=== PATIENT | female | born 1945 | race Caucasian/White ===

== ENCOUNTER 2016-05-18 05:32 | Inpatient (IN) | payer MEDICARE, OTHER ==
--- NOTE | 2016-05-13 14:11 | CONS ---
DATE OF ADMISSION: 05/18/2016 DATE OF CONSULTATION: 05/12/2016 DATE OF PLANNED SURGERY: 05/18/[address] John Mullins: Thank you very much for allowing me to evaluate this 71-year-old female who is to undergo left knee surgery. HISTORICAL EVENTS: As you well know, this patient has had progressive and disabling pain involving her left knee and for this elected to proceed with your recommended surgical intervention. Today, s he denies cough, wheezing, shortness of breath, orthopnea, PND, or chest pain at rest or with exerti on. She denies nausea, vomiting, abdominal pain, unusual constipation or diarrhea and denies sympto ms of gastrointestinal bleeding with review of systems being unrevealing. MEDICATIONS: Include: 1. Topiramate 25 mg 3 tablets at night. 2. Toprol-XL 25 per day. 3. Imdur 60 mg per day. 4. Wellbutrin-XL 300 mg per day. 5. Lexapro. 6. Crestor 10 per day. 7. Aspirin 81 mg b.i.d. 8. Prilosec 40 mg a day. 9. Ranexa 500 mg 2 tabs b.i.d. PAST MEDICAL HISTORY INCLUDES: 1. Hypertrophic cardiomyopathy undergoing ablation of her septum 3 years ago, undergoing preoperati ve cardiac clearance having had a pacemaker-defibrillator placed as well. 2. Hyperlipidemia. 3. History of migraine headaches. 4. Depression. 5. Right knee surgery, right shoulder surgery, hysterectomy, cataract surgery. 6. Nasal surgery. 7. Right parotid gland surgery. 8. Left surgery, remote. 9. History of peptic ulcer disease 2 years ago without gross bleeding. PPI was added. ALLERGIES INCLUDE 1. MORPHINE. 2. ALBUTEROL. 3. SULFA. 4. SULFATES 5. TICLID, 6. LODINE. 7. AMITRIPTYLENE. FAMILY HISTORY: Positive for heart disease and stroke as well as "cancer". 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 PHYSICAL EXAMINATION: GENERAL: [place] female, overweight, in no acute distress. VITAL SIGNS: BP 119/78, respirations were 18. She was afebrile. EYES: Extraocular muscles were full. NOSE, MOUTH, AND THROAT: Normal. NECK: Supple. There was no jugular venous distention, thyroid enlargement or adenopathy. LUNGS: Clear. HEART: Rhythm was regular, no murmur. No third or fourth sound. There was a pacemaker in the righ t upper chest. BREASTS: Not examined. ABDOMEN: Nontender. Liver and spleen were not palpable. No masses or tenderness were noted. EXTREMITIES: No edema, no calf tenderness. Pulses were 2+. NEUROLOGIC: No lateralizing motor weakness. IMPRESSION: I foresee no problems with the planned surgical intervention pending reviewing her card iac preoperative evaluation, and I will follow her postoperatively with you. Dictated By: KENTRELL KINNEY/HECTOR Conf#: [id number] DID#: [id number]
[2016-05-15 11:18] VITALS: BMI 34.2
[~2016-05-18] VITALS: Ht 162.6 cm; Wt 89.7 kg
[2016-05-18] VITALS (26 sets, daily range): BP systolic 102–138; BP diastolic 57–79; PULSE 73–100; RESP 14–22; Ht 162.6 cm; Wt 89.7 kg
[~2016-05-18 05:32] MED LIST: BUPR300T48 PO; CRES10 PO; ESCI10TA PO; NASACORT NASAL; RANO10002 PO; SYMB80120 INH
[2016-05-18] MEDS: LACTATED RINGER'S 1,000 ML IV SCH ×2 (05:49→21:11)
[2016-05-18] MEDS ORDERED: BUPIVACAINE 0.5% (SDV) 40 ML, morphine SULFATE (PF) 10 MG, CLONIDINE 100 MCG, EPINEPHri... IRR SCH ×14 (06:00→06:30)
[2016-05-18] MEDS ORDERED: CEFAZOLIN 2 GM/50 ML (PMX) 50 ML IVPB ONE (06:00)
[2016-05-18] MEDS ORDERED: FAMOTIDINE 20 MG TAB PO ONE (06:00)
[2016-05-18] MEDS ORDERED: METOCLOPRAMIDE 10 MG TAB PO ONE (06:00)
[2016-05-18] MEDS ORDERED: TRANEXAMIC ACID 890 MG in SOD CHLORIDE 0.9% 100 ML IVPB ONE ×6 (06:00)
[2016-05-18] MEDS ORDERED: CELECOXIB 200 MG CAP PO ONE (06:00)
[2016-05-18] MEDS ORDERED: DEXAMETHASONE 4 MG/ML 1 ML INJ IV ONE (06:00)
[2016-05-18] MEDS ORDERED: CYAN100080 PO (06:09)
[2016-05-18] MEDS ORDERED: ESCI10TA PO (06:09)
[2016-05-18] MEDS ORDERED: SUCR1TAB56 PO (06:09)
[2016-05-18] MEDS ORDERED: ASPI81TA3 PO (06:09)
[2016-05-18] MEDS ORDERED: SELE200T11 PO (06:09)
[2016-05-18] MEDS ORDERED: BUPR300T48 PO (06:09)
[2016-05-18] MEDS ORDERED: ISOS30TA5 PO (06:09)
[2016-05-18] MEDS ORDERED: CALC600T5 PO (06:09)
[2016-05-18] MEDS ORDERED: B2/M1TAB PO (06:09)
[2016-05-18] MEDS ORDERED: MECL-77 PO (06:09)
[2016-05-18] MEDS ORDERED: VIT1TABL32 PO (06:09)
[2016-05-18] MEDS ORDERED: ONDA4TAB95 PO (06:09)
[2016-05-18] MEDS ORDERED: VITA200T7 PO (06:09)
[2016-05-18] MEDS ORDERED: POTA99TA14 PO (06:09)
[2016-05-18] MEDS ORDERED: CHOL400T10 PO (06:09)
[2016-05-18] MEDS ORDERED: CRES10 PO (06:09)
[2016-05-18] MEDS ORDERED: HYDR2TAB15 PO (06:09)
[2016-05-18] MEDS ORDERED: CITR454 PO (06:09)
[2016-05-18] MEDS ORDERED: TOPI25TA38 PO (06:09)
[2016-05-18] MEDS ORDERED: SACC250C PO (06:09)
[2016-05-18] MEDS ORDERED: LEVA0.634 INHALATION (06:09)
[2016-05-18] MEDS ORDERED: METO25TA7 PO (06:09)
[2016-05-18] MEDS ORDERED: RANO10002 PO (06:09)
[2016-05-18] MEDS ORDERED: ASC500 PO (06:09)
[2016-05-18] MEDS ORDERED: ELET20TA PO (06:09)
[2016-05-18] MEDS ORDERED: SODI100G DT (06:09)
[2016-05-18] MEDS ORDERED: OMEP40CA6 PO (06:09)
[2016-05-18] MEDS ORDERED: BENZ100C70 PO (06:09)
[2016-05-18] MEDS ORDERED: TIOT18CA INHALATION (06:09)
[2016-05-18] MEDS ORDERED: NEOSTIGMINE 3 MG/3 ML SYRINGE ONE (06:19)
[2016-05-18] MEDS ORDERED: LIDOCAINE 2% (SDV) 5 ML INJ ONE (06:19)
[2016-05-18] MEDS ORDERED: GLYCOPYRROLATE 0.4 MG INJ ONE (06:19)
[2016-05-18] MEDS ORDERED: PROPOFOL 20 ML ONE (06:19)
[2016-05-18] MEDS ORDERED: ROCURONIUM 50 MG INJ ONE (06:19)
[2016-05-18] MEDS ORDERED: MIDAZOLAM 1 MG/ML 2 ML INJ ONE (06:20)
[2016-05-18] MEDS ORDERED: ONDANSETRON 4 MG INJ ONE (06:20)
[2016-05-18] MEDS ORDERED: FENTAnyl 50 MCG/ML VIAL ONE (06:20)
[2016-05-18] MEDS ORDERED: DEXAMETHASONE 4 MG/ML 1 ML INJ ONE (06:21)
[2016-05-18] MEDS ORDERED: MIDAZOLAM 1 MG/ML 2 ML INJ IV PRN (06:30)
[2016-05-18] MEDS ORDERED: hydrALAzine 20 MG INJ IV PRN (06:30)
[2016-05-18] MEDS ORDERED: MEPERIDINE 25 MG INJ IV PRN (06:30)
[2016-05-18] MEDS ORDERED: DIPHENHYDRAMINE 50 MG INJ IV PRN (06:30)
[2016-05-18] MEDS ORDERED: ATROPINE 1 MG/10 ML SYRINGE IV PRN (06:30)
[2016-05-18] MEDS ORDERED: ONDANSETRON 4 MG INJ IV PRN (06:30)
[2016-05-18] MEDS ORDERED: LABETALOL HCL 20MG INJ IV PRN (06:30)
[2016-05-18] MEDS ORDERED: EPHEDrine SULFATE 50 MG/5 ML SYG ONE (06:31)
[2016-05-18] MEDS ORDERED: BACITRACIN 50000 UNITS INJ ONE (06:47)
[2016-05-18] MEDS ORDERED: VANCOMYCIN 1 GM INJ ONE (06:49)
[2016-05-18] MEDS ORDERED: POLYMYXIN/BACITRACIN 1L IRRIG ONE (06:49)
[2016-05-18] MEDS ORDERED: METHYLENE BLUE 10 MG/ML VIAL ONE (06:49)
[2016-05-18] MEDS ORDERED: MAGNESIUM HYDROXIDE 30ML CUP PO PRN (07:00)
[2016-05-18] MEDS ORDERED: ASPIRIN (EC) 325 MG TAB PO ONE (07:00)
[2016-05-18] MEDS ORDERED: NALOXONE (0.4 MG/ML) INJ IV PRN (07:00)
[2016-05-18] MEDS ORDERED: HYDROmorphONE 2 MG/ML SYG IV PRN (07:00)
[2016-05-18] MEDS: KETOROLAC IRR SCH ×12 (07:30→08:15)
[2016-05-18] MEDS: [UNRECOGNIZED DRUG - OTHER] IRR SCH ×12 (07:30→08:15)
[2016-05-18] MEDS: BUPIVACAINE 0.5% IRR SCH ×12 (07:30→08:15)
[2016-05-18] MEDS: CLONIDINE IRR SCH ×12 (07:30→08:15)
[2016-05-18] MEDS: EPINEPHRINE IRR SCH ×12 (07:30→08:15)
[2016-05-18] MEDS ORDERED: ROPIVACAINE 0.5 % 30 ML VIAL ONE (08:19)
[2016-05-18] MEDS ORDERED: LIDOCAINE 2%/EPI 30 ML INJ ONE (08:19)
[2016-05-18] MEDS ORDERED: FUROSEMIDE 20 MG INJ ONE (09:00)
--- NOTE | 2016-05-18 10:13 | OPR ---
DATE OF OPERATION: 05/18/2016 SURGEON: Augustine Mullins MD RF TECHNICIAN: CARLOS LEON MD The assistant director of public works functioned throughout the case to protect the collateral ligament and patellar tendon, allow for positioning of the knee and cementation technique , and was instrumental to the performance of this procedure. PREOPERATIVE DIAGNOSIS: Osteoarthritis left knee. POSTOPERATIVE DIAGNOSIS: Osteoarthritis varus, left knee. OPERATION: Total knee replacement, Shad, posterior cruciate ligament substituting with cement, size 6 femur, D tibia, 12 polyethylene, 29 patella; OrthoSensor technique. ANESTHESIA: Spinal plus general plus left adduction nerve block. PROCEDURE: The patient was taken to the operating room and given spinal and general anesthesia. The left lower extremity was prepared and draped in the usual manner. Range of motion showed flexion 20, extension 0. A medial peripatellar 2-inch incision was made in VMO. An arthrotomy was carried out. The patella was not everted. The articular surface of the medial patellofemoral had grade 4 changes. The external alignment guide was then used for us to check rotation, then flexion-extension, and then depth of cut. The anterior cruciate ligament and posterior cruciate ligament were both taken. The intramedullary alignment guide was used on the femur after careful enlargement of the hole and irrigation. The distal 10-mm of bone was resected, allowing complete extension. The femur was externally rotated 3 degrees in line with the Shad flexion tensioning device. A trial reduction was carried out after appropriate ligamentous releasing all measurements on the OrthoSensor at 5, 30, 90 were within 15 pounds. After appropriate ligamentous releasing, the knee came to complete extension with 1+ varus-valgus laxity, 1+ to 2+ AP laxity. The patella measured 25 mm, and 10 mm were taken. The patella tracked with a no-touch technique. The joint was copiously irrigated. The patella, femur, and tibia were inserted with a trial tibia. Range of motion was similar. A 12-mm tibial component was used, allowing complete extension and flexion of 125 degrees, 1+ to 2+ AP drawer. There was trace to 1+ varus/valgus laxity at 30 degrees. The tourniquet was released. Tourniquet time was 49 minutes. Hemostasis was excellent. The knee was copiously irrigated. The capsule was closed with interrupted #1 Dexon and the subcutaneous tissue with 2-0 Dexon. The skin was closed with subcuticular and a compression dressing was applied. Dictated By: AUGUSTINE OWEN/HECTOR Conf#: [id number] DID#: [id number] MTDD
--- NOTE | 2016-05-18 10:18 | RADRPT ---
PROCEDURE: XR Tibia and Fibula 1 Views. CLINICAL INDICATION: Left knee replacement, pain. TECHNIQUE: AP views of the left tibia and fibula were obtained. COMPARISON: No prior studies are available for comparison. FINDINGS: Proximal tibia and fibula were not included on the obtained image. Metallic surgical devices identi fied over the lower tibia. The visualized osseous structures appear intact. No destructive bony le sions are identified. The visualized interosseous spaces are unremarkable. Soft tissues surroundin g the tibia and fibula are unremarkable. IMPRESSION: Proximal tibia and fibula not included on the obtained image. Repeat exam can be considered. Metallic surgical device over the lower tibia. RPTAT: AA .Graham Ibarra MD, Date Time Electronically viewed and signed by .Graham Ibarra MD, on 05/18/2016 10:18 .P/
--- NOTE | 2016-05-18 12:33 | RADRPT ---
PROCEDURE: XR left knee. CLINICAL INDICATION: Knee pain. TECHNIQUE: AP and lateral views are available for review. COMPARISON: No comparison available FINDINGS: There is a postoperative total knee replacement. There is no evidence of loosening of the prosthesis . The osseous structures are normal in mineralization, architecture and alignment No acute fracture or dislocation is seen.No osseous lesions are identified. There are postoperative soft tissue singletary es . IMPRESSION: Unremarkable postoperative total knee replacement. Postoperative soft tissue changes RPTAT: HGDB .Krishna Martinez MD, Date Time Electronically viewed and signed by .Krishna Martinez MD, on 05/18/2016 12:33 .B/
[2016-05-18] MEDS: D5W-0.45 NACL + KCL 20 MEQ 1,000 ML IV SCH ×2 (13:53→20:59)
[2016-05-18] MEDS: CEFAZOLIN 2 GM/50 ML (PMX) 50 ML IVPB SCH ×2 (14:01→20:58)
[2016-05-18] MEDS: HYDROmorphONE 1 MG/ML SYG IV PRN (15:38)
[2016-05-18] MEDS: METOPROLOL (XL) 25 MG TAB PO SCH (19:00)
[2016-05-18] MEDS ORDERED: MECLIZINE 25 MG TAB PO PRN (19:00)
--- NOTE | 2016-05-18 19:25 | CONS ---
DATE OF ADMISSION: 05/18/2016 DATE OF CONSULTATION: TYPE OF CONSULTATION: Medical. Thank you, Dr. Kelley, for asking me to participate in the medical management of this patient. REASON FOR CONSULTATION: To manage the patient's hypertrophic cardiomyopathy, hyperlipidemia, migra ine headaches, depression. HISTORY OF PRESENT ILLNESS: This 71-year-old female in is now postop a left total knee replacement by Dr. Kelley. The patient has had increasing disabling pain involving her left knee. She failed medical therapy and decided to undergo a left total knee replacement. The patient is now postop. She is awake and alert. Her pain is controlled. The patient was up walking with physical therapy t nelson. The patient denies any chest pain or shortness of breath. MEDICATIONS: The patient is on the following medications: 1. Topiramate 75 mg at night. 2. Toprol-XL 25 mg a day. 3. Imdur 90 mg in the morning. 4. Wellbutrin-XL 300 mg a day. 5. Lexapro 10 mg a day. 6. Crestor 10 mg a day. 7. Aspirin 81 mg twice a day, which was discontinued preoperatively. 8. Prilosec 40 mg a day. 9. Ranexa 500 mg 2 tablets twice a day. PAST MEDICAL HISTORY: Remarkable for: 1. 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 2. Hypertrophic cardiomyopathy, having undergone ablation of her septum 3 years ago. 3. Pacemaker defibrillator. 4. Hyperlipidemia. 5. Migraine headaches. 6. Depression. 7. History of peptic ulcer disease, now on a PPI. PAST SURGICAL HISTORY: 1. Right total [place] [address] Kelley. 2. Hysterectomy. 3. Cataract surgery. 4. Nasal surgery. 5. Right parotid gland surgery. ALLERGIES: MORPHINE, ALBUTEROL, SULFATES, TICLID, LODINE, AND AMITRIPTYLINE. FAMILY HISTORY: Positive for heart disease and stroke as well as cancer. SOCIAL HISTORY: The patient does not smoke, rarely drinks alcohol. 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 PHYSICAL EXAMINATION: GENERAL: At this time, reveals a well-developed female in no apparent distress. VITAL SIGNS: Temperature 98.1, pulse of 80, respirations 18, blood pressure 112/70, O2 saturation 9 3% on 2 liter nasal cannula. HEENT: Head normocephalic. EYES: Extraocular muscles intact. NOSE AND MOUTH: Normal. NECK: Supple. No neck vein distention. LUNGS: Clear to auscultation. HEART: Regular rhythm with a II/ systolic ejection murmur. There is a pacemaker defibrillator in the chest wall. ABDOMEN: Soft, nontender. No masses or megaly. EXTREMITIES: A large bandage on the left knee. No edema in the lower extremities. IMPRESSION: This patient is stable after having a left total knee replaced today. She is awake and alert and denies any chest pain or shortness of breath. Her vital signs are stable. Her pain is u nder good control. I will manage the patient's cardiomyopathy, hyperlipidemia, migraine headaches, and depression. PLAN: 1. Resume routine medications. 2. Postop total knee replacement protocol. 3. Laboratory tests in the morning. 4. I will follow the patient along with you medically. Dictated By: KAMRON CONNOR MD ND/NTS Conf#: [id number] DID#: [id number] CC: AUGUSTINE KELLEY MD;*EndCC*
[2016-05-18] MEDS: TOPIRAMATE 25 MG TAB PO SCH (19:44)
[2016-05-18] MEDS: ONDANSETRON 4 MG INJ IV PRN (19:46)
[2016-05-18] MEDS: HYDROmorphONE 2 MG/ML SYG IV PRN (19:47)
[2016-05-18] MEDS: FAMOTIDINE 20 MG TAB PO SCH (20:58)
[2016-05-18] MEDS: ATORVASTATIN 80 MG TAB PO SCH (20:58)
[2016-05-18] MEDS: RANOLAZINE (SR) 500 MG TAB PO SCH (20:59)
[2016-05-18] MEDS: METOCLOPRAMIDE 10 MG TAB PO SCH (20:59)
[2016-05-18] MEDS ORDERED: NON-FORMULARY/PATIENT OWN MED (Rosuvastatin Calcium* (Crestor*) 10 MG) PO SCH (21:00)
[2016-05-18] MEDS: SENNA/DOCUSATE NA (8.6MG/50MG) TAB PO SCH (21:00)
[2016-05-19] MEDS: ONDANSETRON 4 MG INJ IV PRN ×2 (01:08→06:59)
[2016-05-19] MEDS: HYDROmorphONE 2 MG/ML SYG IV PRN ×4 (01:09→19:01)
[2016-05-19] MEDS: PANTOPRAZOLE (EC) 40 MG TAB PO SCH (05:06)
[2016-05-19] MEDS: CEFAZOLIN 2 GM/50 ML (PMX) 50 ML IVPB SCH (05:06)
[2016-05-19 05:26] VITALS: BP 100/58; PULSE 88; RESP 19
[2016-05-19 05:58] LABS: BASOPHILS % 0.1 % (0.0-2.0); HEMATOCRIT 36.2 % (37.0-47.0); HEMOGLOBIN 12.3 g/dl (12.0-16.0); LYMPHOCYTES # 0.7 10^3/ul (0.8-2.9); LYMPHOCYTES % 3.7 % (15.0-51.0); MEAN CORPUSCULAR VOLUME 93.9 fl (82.0-101.0); MONOCYTE # 1.1 10^3/ul (0.3-0.9); MONOCYTES % 6.2 % (0.0-11.0); NEUTROPHIL # 16.2 10^3/ul (1.6-7.5); PLATELET COUNT 194 10^3/UL (140-440); RED BLOOD COUNT 3.86 10^6/ul (4.20-5.40); RED CELL DISTRIBUTION WIDTH 12.7 % (11.5-14.5)
[2016-05-19] MEDS: D5W-0.45 NACL + KCL 20 MEQ 1,000 ML IV SCH ×2 (06:00→13:22)
[2016-05-19 06:04] LABS: CONDITION 1
[2016-05-19 06:07] LABS: POTASSIUM 4.7 mmol/L (3.5-5.1)
[2016-05-19 06:10] LABS: CREATININE 1.08 mg/dl (0.44-1.00)
[2016-05-19 06:11] LABS: CALCIUM 8.8 mg/dl (8.4-10.2)
--- NOTE | 2016-05-19 07:51 | PN ---
DATE: 05/19/2016 The patient comfortable, afebrile, vital signs stable. No calf tenderness. Out of bed. PLAN: 1. Mobilize. 2. Per Dr. Masters. Dictated By: AUGUSTINE OWEN/HECTOR Conf#: [id number] DID#: [id number]
[2016-05-19] MEDS ORDERED: HYDROmorphONE 2 MG TAB PO PRN (08:00)
[2016-05-19 08:07] VITALS: BP 108/59; RESP 18
--- NOTE | 2016-05-19 08:07 | CONS ---
Date/Time of Note Date/Time of Note DATE: 05/19/16 TIME: 08:05 Assessment/Plan Assessment/Plan Additional Assessment/Plan 1. Hypertrophic cardiomyopathy. stable 2. Left knee replacement, stable 3. History of migraine headaches, quiescent 4. Slight inc WBC, u/a and cult pending Consultation Date/Type/Reason Admit Date/Time May 18, 2016 at 05:32 Initial Consult Date Detailed Summary Respiratory: cough (mild and not productive), No shortness of breath Cardiovascular: No chest pain Gastrointestinal: no complaints Genitourinary: no complaints, other (kong in place) Musculoskeletal: bone/joint pain (left knee pain moderate) Exam/Review of Systems Vital Signs Vitals Vital Signs Date Time Temp Pulse Resp B/P Pulse Ox O2 Delivery O2 Flow Rate FiO2 05/19/16 05:26 98.3 88 19 100/58 93 Nasal Cannula 2.0 Intake and Output 05/18/16 05/18/16 05/19/16 15:00 23:00 07:00 Intake Total 1967.8 ml 1300 ml 2600 ml Output Total 750 ml 850 ml 1450 ml Balance 1217.8 ml 450 ml 1150 ml Exam Neck: No jvd Respiratory: clear to auscultation Cardiovascular: regular rate and rhythm Gastrointestinal: soft Extremities: No edema (right lower extrem, left bandaged) Results Result Diagram: 05/19/16 0441 05/19/16 0441 Results 24 hrs Laboratory Tests Test 05/19/16 04:41 Anion Gap 15 Basophils # 0.0 Basophils % 0.1 Blood Urea Nitrogen 14 Calcium Level 8.8 Carbon Dioxide Level 23 Chloride Level 106 Creatinine 1.08 H Eosinophils # 0.0 Eosinophils % 0.0 Glucose Level 175 Hematocrit 36.2 L Hemoglobin 12.3 Lymphocytes # 0.7 L Lymphocytes % 3.7 L Mean Corpuscular Hemoglobin 32.0 Mean Corpuscular Hemoglobin Concent 34.0 Mean Corpuscular Volume 93.9 Mean Platelet Volume 8.0 Monocytes # 1.1 H Monocytes % 6.2 Neutrophils # 16.2 H Neutrophils % 90.0 H Nucleated Red Blood Cells # 0.0 Nucleated Red Blood Cells % 0.0 Platelet Count 194 Potassium Level 4.7 Red Blood Count 3.86 L Red Cell Distribution Width 12.7 # Sodium Level 139 White Blood Count 18.0 H Medications Medications Current Medications Lactated Ringer's (Lr) 1,000 ml @ 25 mls/hr Q24H IV ; Start 05/18/16 at 05:49 Hydromorphone HCl (Dilaudid) 1 mg Q3H PRN IV PAIN LEVEL 1-3 Last administered on 05/18/16 15:38; Admin Dose 1 MG; Start 05/18/16 at 07:00 Hydromorphone HCl (Dilaudid) 1.5 mg Q3H PRN IV PAIN LEVEL 4-6; Start 05/18/16 at 07:00 Hydromorphone HCl (Dilaudid) 2 mg Q3H PRN IV PAIN LEVEL 7-10 Last administered on 05/19/16 07:00; Admin Dose 2 MG; Start 05/18/16 at 07:00 Naloxone HCl (Narcan) 0.2 mg Q2M PRN IV RESPIRATORY RATE LESS THAN 8; Start at 07:00 Senna/Docusate Sodium (Senokot-S) 1 tab BID PO ; Start 05/18/16 at 21:00 Magnesium Hydroxide (Milk Of Mag) 30 ml BID PRN PO CONSTIPATION; Start at 07:00 Magnesium Hydroxide (Milk Of Mag) 30 ml HS PO ; Start 05/20/16 at 21:00 Ondansetron HCl (Zofran Inj) 4 mg Q4H PRN IV NAUSEA Last administered on 06:59; Admin Dose 4 MG; Start 05/18/16 at 07:00 Famotidine (Pepcid) 20 mg BID PO Last administered on 05/18/16 20:58; Admin Dose 20 MG; Start 05/18/16 at 21:00 Metoclopramide HCl (Reglan) 10 mg BID PO Last administered on 05/18/16 20:59; Admin Dose 10 MG; Start 05/18/16 at 21:00 Aspirin 325 mg 325 mg BID PO ; Start 05/19/16 at 09:00 Potassium Chloride/Dextrose/ Sod Cl (D5-1/2ns + KCl 20 Meq) 1,000 ml @ 100 mls/ hr Q10H IV Last administered on 05/18/16 20:59; Admin Dose 100 MLS/HR; Start 05/18/16 at 10:00 Ascorbic Acid (Vitamin C) 500 mg DAILY PO ; Start 05/19/16 at 09:00 Bupropion HCl (Wellbutrin Xl) 300 mg DAILY PO ; Start 05/19/16 at 09:00 Escitalopram Oxalate (Lexapro) 10 mg DAILY PO ; Start 05/19/16 at 09:00 Isosorbide Mononitrate (Imdur) 90 mg DAILY PO ; Start 05/19/16 at 09:00 Meclizine HCl (Antivert) 25 mg Q8H PRN PO DIZZINESS; Start 05/18/16 at 19:00 Methylcellulose (Citrucel) 1 pkt DAILY PO ; Start 05/19/16 at 09:00 Metoprolol Succinate (Toprol Xl) 25 mg DAILY PO ; Start 05/18/16 at 19:00 Ranolazine (Ranexa) 1,000 mg Q12 PO Last administered on 05/18/16 20:59; Admin Dose 1,000 MG; Start 05/18/16 at 21:00 Saccharomyces Boulardii (Florastor) 250 mg DAILY PO ; Start 05/19/16 at 09:00 Tiotropium [place] (Spiriva) 1 inh DAILY INH ; Start 05/19/16 at 09:00 Topiramate (Topamax) 75 mg DAILY PO Last administered on 05/18/16 19:44; Admin Dose 75 MG; Start 05/18/16 at 19:00 Pantoprazole (Protonix Tab) 40 mg DAILY@06 PO Last administered on 05/19/16 05 :06; Admin Dose 40 MG; Start 05/19/16 at 06:00 Atorvastatin Calcium (Lipitor) 80 mg DAILY@21 PO Last administered on 20:58; Admin Dose 80 MG; Start 05/18/16 at 21:00 Hydromorphone HCl (Dilaudid) 2 mg Q3H PRN PO PAIN; Start 05/19/16 at 08:00 KENTRELL MARKS MD May 19, 2016 08:07
--- NOTE | 2016-05-19 08:48 | RADRPT ---
PROCEDURE: XR Chest. CLINICAL INDICATION: Cough. Postop. TECHNIQUE: Single frontal view. COMPARISON: 03/21/2014. FINDINGS: There is a tunneled right internal jugular vein implanted port central venous catheter with the tip in the upper superior vena cava. There is a left-sided dual lead permanent pacemaker/internal cardi ac defibrillator. The lungs are clear. The heart size is normal. There is no pleural effusion. There is no pneumothorax. IMPRESSION: 1. Right internal jugular vein central venous catheter as described above. 2. Permanent pacemaker/internal cardiac defibrillator. 3. Clear lungs. RPTAT: QQ .Amos Ramos MD, MD Date Time Electronically viewed and signed by .Amos Ramos MD, MD on 05/19/2016 08:47 .R/
[2016-05-19] MEDS: TOPIRAMATE 25 MG TAB PO SCH ×3 (09:00→20:55)
[2016-05-19] MEDS ORDERED: NON-FORMULARY/PATIENT OWN MED (Omeprazole* 40 MG) PO SCH (09:00)
[2016-05-19] MEDS: METOCLOPRAMIDE 10 MG TAB PO SCH ×2 (09:12→20:55)
[2016-05-19] MEDS: ASPIRIN (EC) 325 MG TAB PO SCH ×2 (09:12→20:53)
[2016-05-19] MEDS: ISOSORBIDE MONONITRATE(SR)30 MG TAB PO SCH (09:13)
[2016-05-19] MEDS: BUPROPION (XL) 150 MG TAB PO SCH (09:13)
[2016-05-19] MEDS: ESCITALOPRAM 10 MG TAB PO SCH (09:13)
[2016-05-19] MEDS: ASCORBIC ACID 500 MG TAB PO SCH (09:13)
[2016-05-19] MEDS: SACCHAROMYCES BOULARDII 250 MG CAP PO SCH (09:14)
[2016-05-19] MEDS: SENNA/DOCUSATE NA (8.6MG/50MG) TAB PO SCH ×2 (09:14→20:54)
[2016-05-19] MEDS: RANOLAZINE (SR) 500 MG TAB PO SCH ×2 (09:14→20:54)
[2016-05-19] MEDS: FAMOTIDINE 20 MG TAB PO SCH (09:14)
[2016-05-19] MEDS: METHYLCELLULOSE PACKET PO SCH (09:15)
[2016-05-19] MEDS: TIOTROPIUM 18 MCG CAPSULE INHA DEV INH SCH (09:15)
[2016-05-19] MEDS: METOPROLOL (XL) 25 MG TAB PO SCH (09:16)
[2016-05-19 09:22] LABS: ADD UMIC YES; URINE BILIRUBIN (Dip) NEGATIVE (NEGATIVE); URINE BLOOD (Dip) NEGATIVE (NEGATIVE); URINE COLOR LT. YELLOW (YELLOW); URINE GLUCOSE (Dip) NEGATIVE (NEGATIVE); URINE KETONES (Dip) NEGATIVE (NEGATIVE); URINE LEUKOCYTE ESTERASE (Dip) TRACE (NEGATIVE); URINE NITRITE (Dip) NEGATIVE (NEGATIVE); URINE TOTAL PROTEIN (Dip) NEGATIVE (NEGATIVE); URINE UROBILINOGEN (Dip) 0.2 E.U./dL (0.1-1.0)
[2016-05-19 09:33] LABS: URINE RBCS NONE SEEN /HPF (0)
[2016-05-19] MEDS ORDERED: SUCRALFATE 1 GM TAB PO PRN (11:00)
[2016-05-19] MEDS: CEPASTAT LOZENGE MT PRN (17:15)
[2016-05-19] MEDS ORDERED: LEVALBUTEROL (NEB) 0.63 MG/3 ML AMP HHN PRN (17:30)
[2016-05-19] MEDS ORDERED: LEVALBUTEROL (NEB) 0.63 MG/3 ML AMP ONE (17:41)
[2016-05-19] MEDS: ATORVASTATIN 80 MG TAB PO SCH (20:53)
[2016-05-19 21:12] VITALS: BP 92/53; RESP 20
[2016-05-20] MEDS: D5W-0.45 NACL + KCL 20 MEQ 1,000 ML IV SCH ×3 (02:00→20:53)
[2016-05-20 05:30] LABS: BASOPHILS % 0.3 % (0.0-2.0); EOSINOPHILS # 0.2 10^3/ul (0.0-0.5); EOSINOPHILS % 2.8 % (0.0-7.0); HEMATOCRIT 31.2 % (37.0-47.0); HEMOGLOBIN 10.7 g/dl (12.0-16.0); LYMPHOCYTES # 1.1 10^3/ul (0.8-2.9); LYMPHOCYTES % 14.1 % (15.0-51.0); MEAN CORPUSCULAR HEMOGLOBIN 32.1 pg (29.0-33.0); MEAN CORPUSCULAR HGB CONC 34.3 g/dl (32.0-37.0); MEAN CORPUSCULAR VOLUME 93.5 fl (82.0-101.0); MEAN PLATELET VOLUME 7.8 fl (7.4-10.4); MONOCYTE # 0.8 10^3/ul (0.3-0.9); MONOCYTES % 10.2 % (0.0-11.0); NEUTROPHIL # 5.8 10^3/ul (1.6-7.5); NEUTROPHILS % 72.6 % (39.0-77.0); PLATELET COUNT 161 10^3/UL (140-440); RED BLOOD COUNT 3.34 10^6/ul (4.20-5.40); RED CELL DISTRIBUTION WIDTH 12.9 % (11.5-14.5)
[2016-05-20] MEDS: PANTOPRAZOLE (EC) 40 MG TAB PO SCH (05:31)
[2016-05-20] MEDS: HYDROmorphONE 1 MG/ML SYG IV PRN (05:33)
[2016-05-20 05:48] LABS: CREATININE 1.01 mg/dl (0.44-1.00)
[2016-05-20 05:49] LABS: CALCIUM 8.7 mg/dl (8.4-10.2); CONDITION 1
[2016-05-20] MEDS: LACTATED RINGER'S 1,000 ML IV SCH (05:49)
[2016-05-20 08:02] VITALS: BP 97/56; RESP 18
--- NOTE | 2016-05-20 08:45 | CONS ---
Date/Time of Note Date/Time of Note DATE: 05/20/16 TIME: 08:43 Assessment/Plan Assessment/Plan Additional Assessment/Plan 1. Doing well post op left knee replacement 2. Mild vol overload without chf, lasix and K given 3. Asthmatic bronchitis, HHN continued with now Atorvent, Zithromax started and mucolytics Consultation Date/Type/Reason Admit Date/Time May 18, 2016 at 05:32 Detailed Summary Respiratory: cough (moderate and some wheezing, colored mucus noted) Cardiovascular: No chest pain Gastrointestinal: no complaints Genitourinary: no complaints Musculoskeletal: bone/joint pain (left knee pain is mild-mod) Exam/Review of Systems Vital Signs Vitals Vital Signs Date Time Temp Pulse Resp B/P Pulse Ox O2 Delivery O2 Flow Rate FiO2 05/20/16 08:02 97.4 85 18 97/56 94 05/19/16 18:02 Nasal Cannula 2.0 Intake and Output 05/19/16 05/19/16 05/20/16 15:00 23:00 07:00 Intake Total 630 ml 1200 ml Output Total 1100 ml Balance 630 ml 100 ml Exam Neck: No jvd Respiratory: other (rhonchi and some wheezing bilat) Cardiovascular: regular rate and rhythm Gastrointestinal: soft Extremities: edema (of legs, 1+ sacral edema) Results Result Diagram: 05/20/16 0420 05/20/16 0420 Results 24 hrs Laboratory Tests Test 05/20/16 04:20 Anion Gap 11 Basophils # 0.0 Basophils % 0.3 Blood Urea Nitrogen 16 Calcium Level 8.7 Carbon Dioxide Level 25 Chloride Level 107 Creatinine 1.01 H Eosinophils # 0.2 Eosinophils % 2.8 Glucose Level 89 # Hematocrit 31.2 L Hemoglobin 10.7 L Lymphocytes # 1.1 Lymphocytes % 14.1 L Mean Corpuscular Hemoglobin 32.1 Mean Corpuscular Hemoglobin Concent 34.3 Mean Corpuscular Volume 93.5 Mean Platelet Volume 7.8 Monocytes # 0.8 Monocytes % 10.2 Neutrophils # 5.8 Neutrophils % 72.6 Nucleated Red Blood Cells # 0.0 Nucleated Red Blood Cells % 0.0 Platelet Count 161 Potassium Level 4.0 Red Blood Count 3.34 L Red Cell Distribution Width 12.9 Sodium Level 139 White Blood Count 8.0 # Medications Medications Current Medications Lactated Ringer's (Lr) 1,000 ml @ 25 mls/hr Q24H IV ; Start 05/18/16 at 05:49 Hydromorphone HCl (Dilaudid) 1 mg Q3H PRN IV PAIN LEVEL 1-3 Last administered on 05/20/16 05:33; Admin Dose 1 MG; Start 05/18/16 at 07:00 Hydromorphone HCl (Dilaudid) 1.5 mg Q3H PRN IV PAIN LEVEL 4-6; Start 05/18/16 at 07:00 Hydromorphone HCl (Dilaudid) 2 mg Q3H PRN IV PAIN LEVEL 7-10 Last administered on 05/19/16 19:01; Admin Dose 2 MG; Start 05/18/16 at 07:00 Naloxone HCl (Narcan) 0.2 mg Q2M PRN IV RESPIRATORY RATE LESS THAN 8; Start at 07:00 Senna/Docusate Sodium (Senokot-S) 1 tab BID PO Last administered on 05/19/16 20:54; Admin Dose 1 TAB; Start 05/18/16 at 21:00 Magnesium Hydroxide (Milk Of Mag) 30 ml BID PRN PO CONSTIPATION; Start at 07:00 Magnesium Hydroxide (Milk Of Mag) 30 ml HS PO ; Start 05/20/16 at 21:00 Ondansetron HCl (Zofran Inj) 4 mg Q4H PRN IV NAUSEA Last administered on 06:59; Admin Dose 4 MG; Start 05/18/16 at 07:00 Metoclopramide HCl (Reglan) 10 mg BID PO Last administered on 05/19/16 20:55; Admin Dose 10 MG; Start 05/18/16 at 21:00 Aspirin 325 mg 325 mg BID PO Last administered on 05/19/16 20:53; Admin Dose 325 MG; Start 05/19/16 at 09:00 Potassium Chloride/Dextrose/ Sod Cl (D5-1/2ns + KCl 20 Meq) 1,000 ml @ 100 mls/ hr Q10H IV Last administered on 05/18/16 20:59; Admin Dose 100 MLS/HR; Start 05/18/16 at 10:00 Ascorbic Acid (Vitamin C) 500 mg DAILY PO Last administered on 05/19/16 09:13 ; Admin Dose 500 MG; Start 05/19/16 at 09:00 Bupropion HCl (Wellbutrin Xl) 300 mg DAILY PO Last administered on 05/19/16 09 :13; Admin Dose 300 MG; Start 05/19/16 at 09:00 Escitalopram Oxalate (Lexapro) 10 mg DAILY PO Last administered on 05/19/16 09 :13; Admin Dose 10 MG; Start 05/19/16 at 09:00 Isosorbide Mononitrate (Imdur) 90 mg DAILY PO Last administered on 05/19/16 09 :13; Admin Dose 90 MG; Start 05/19/16 at 09:00 Meclizine HCl (Antivert) 25 mg Q8H PRN PO DIZZINESS; Start 05/18/16 at 19:00 Methylcellulose (Citrucel) 1 pkt DAILY PO Last administered on 05/19/16 09:15 ; Admin Dose 1 PKT; Start 05/19/16 at 09:00 Metoprolol Succinate (Toprol Xl) 25 mg DAILY PO Last administered on 05/19/16 09:16; Admin Dose 25 MG; Start 05/18/16 at 19:00 Ranolazine (Ranexa) 1,000 mg Q12 PO Last administered on 05/19/16 20:54; Admin Dose 1,000 MG; Start 05/18/16 at 21:00 Saccharomyces Boulardii (Florastor) 250 mg DAILY PO Last administered on 09:14; Admin Dose 250 MG; Start 05/19/16 at 09:00 Tiotropium [place] (Spiriva) 1 inh DAILY INH Last administered on 05/19/16 09: 15; Admin Dose 1 INH; Start 05/19/16 at 09:00 Pantoprazole (Protonix Tab) 40 mg DAILY@06 PO Last administered on 05/20/16 05 :31; Admin Dose 40 MG; Start 05/19/16 at 06:00 Atorvastatin Calcium (Lipitor) 80 mg DAILY@21 PO Last administered on 20:53; Admin Dose 80 MG; Start 05/18/16 at 21:00 Hydromorphone HCl (Dilaudid) 2 mg Q3H PRN PO PAIN; Start 05/19/16 at 08:00 Topiramate (Topamax) 75 mg HS PO Last administered on 05/19/16 20:55; Admin Dose 75 MG; Start 05/19/16 at 21:00 Sucralfate (Carafate) 1 gm TID PRN PO NAUSEA; Start 05/19/16 at 11:00 Phenol (Cepastat Lozenge) 1 lozenge Q1H PRN MT sore throat Last administered on 05/19/16 17:15; Admin Dose 1 LOZENGE; Start 05/19/16 at 17:00 Guaifenesin/ Dextromethorphan (Mucinex Dm) 1 tab BID PO ; Start 05/20/16 at 09: 00; Status UNV Azithromycin (Zithromax) 500 mg ONCE ONCE PO ; Start 05/20/16 at 09:00; Stop at 09:01; Status UNV Furosemide (Lasix) 20 mg ONCE ONCE IV ; Start 05/20/16 at 09:00; Stop 05/20/16 at 09:01; Status UNV Potassium Chloride (Klor-Con 10) 30 meq ONCE ONCE PO ; Start 05/20/16 at 09:00 ; Stop 05/20/16 at 09:01; Status UNV KENTRELL MARKS MD May 20, 2016 08:45
[2016-05-20] MEDS: METOPROLOL (XL) 25 MG TAB PO SCH ×2 (09:00→11:56)
[2016-05-20] MEDS ORDERED: AZITHROMYCIN 250 MG TAB PO ONE (09:00)
[2016-05-20] MEDS ORDERED: POTASSIUM CHLORIDE (SR) 10 MEQ TAB PO ONE (09:00)
[2016-05-20] MEDS ORDERED: FUROSEMIDE 20 MG INJ IV ONE (09:00)
[2016-05-20] MEDS: ISOSORBIDE MONONITRATE(SR)30 MG TAB PO SCH ×2 (09:00→15:58)
[2016-05-20 09:49] VITALS: BP 105/73; PULSE 86
[2016-05-20] MEDS: GUAIFENESIN/DM (SR) TAB PO SCH ×2 (09:53→20:38)
[2016-05-20] MEDS: HYDROmorphONE 2 MG/ML SYG IV PRN ×3 (09:54→20:39)
[2016-05-20] MEDS: BUPROPION (XL) 150 MG TAB PO SCH (09:54)
[2016-05-20] MEDS: METHYLCELLULOSE PACKET PO SCH (09:54)
[2016-05-20] MEDS: TIOTROPIUM 18 MCG CAPSULE INHA DEV INH SCH (09:54)
[2016-05-20] MEDS: ESCITALOPRAM 10 MG TAB PO SCH (09:55)
[2016-05-20] MEDS: ASPIRIN (EC) 325 MG TAB PO SCH ×2 (09:55→20:38)
[2016-05-20] MEDS: ASCORBIC ACID 500 MG TAB PO SCH (09:55)
[2016-05-20] MEDS: SACCHAROMYCES BOULARDII 250 MG CAP PO SCH (09:55)
[2016-05-20] MEDS: SENNA/DOCUSATE NA (8.6MG/50MG) TAB PO SCH ×2 (09:55→20:38)
[2016-05-20] MEDS: RANOLAZINE (SR) 500 MG TAB PO SCH ×2 (09:55→20:38)
[2016-05-20] MEDS: METOCLOPRAMIDE 10 MG TAB PO SCH ×2 (09:56→20:38)
[2016-05-20] MEDS ORDERED: LEVALBUTEROL (NEB) 0.63 MG/3 ML AMP ONE (10:13)
[2016-05-20] MEDS ORDERED: IPRATROPIUM (NEB) 0.5 MG/2.5 ML AMP ONE (10:14)
[2016-05-20] MEDS: IPRATROPIUM (NEB) 0.5 MG/2.5 ML AMP HHN SCH ×2 (10:15→19:42)
[2016-05-20] MEDS: LEVALBUTEROL (NEB) 0.63 MG/3 ML AMP HHN SCH ×2 (10:16→19:42)
--- NOTE | 2016-05-20 11:07 | PN ---
DATE: 05/20/2016 Postop day #2. Patient comfortable, out of bed. No calf pain. PLAN: Dr. Masters is evaluating her breathing. She had a x-ray, wants to keep her another day. Dictated By: AUGUSTINE OWEN/HECTOR Conf#: [id number] DID#: [id number]
[2016-05-20 19:00] VITALS: BP 101/62; RESP 18
[2016-05-20] MEDS: ATORVASTATIN 80 MG TAB PO SCH (20:38)
[2016-05-20] MEDS: TOPIRAMATE 25 MG TAB PO SCH (20:39)
[2016-05-20] MEDS: ONDANSETRON 4 MG INJ IV PRN (20:39)
[2016-05-20] MEDS: CEPASTAT LOZENGE MT PRN (20:39)
[2016-05-20] MEDS: MAGNESIUM HYDROXIDE 30ML CUP PO SCH (20:53)
[2016-05-21] VITALS (12 sets, daily range): BP systolic 90–115; BP diastolic 50–63; PULSE 87–113; RESP 18–20
[2016-05-21] MEDS: LEVALBUTEROL (NEB) 0.63 MG/3 ML AMP HHN SCH ×4 (01:05→20:09)
[2016-05-21] MEDS: PANTOPRAZOLE (EC) 40 MG TAB PO SCH (05:02)
[2016-05-21 05:27] LABS: BASOPHILS % 0.3 % (0.0-2.0); EOSINOPHILS # 0.3 10^3/ul (0.0-0.5); EOSINOPHILS % 3.4 % (0.0-7.0); HEMATOCRIT 32.2 % (37.0-47.0); HEMOGLOBIN 10.9 g/dl (12.0-16.0); LYMPHOCYTES % 11.5 % (15.0-51.0); MEAN CORPUSCULAR HEMOGLOBIN 32.3 pg (29.0-33.0); MEAN CORPUSCULAR VOLUME 94.8 fl (82.0-101.0); MEAN PLATELET VOLUME 7.4 fl (7.4-10.4); MONOCYTE # 1.1 10^3/ul (0.3-0.9); MONOCYTES % 13.8 % (0.0-11.0); NEUTROPHIL # 5.9 10^3/ul (1.6-7.5); PLATELET COUNT 169 10^3/UL (140-440); RED BLOOD COUNT 3.39 10^6/ul (4.20-5.40); UNCORRECTED WBC 8.3 10^3/ul (4.8-10.8); WHITE BLOOD COUNT 8.3 10^3/ul (4.8-10.8)
[2016-05-21 05:33] LABS: POTASSIUM 4.3 mmol/L (3.5-5.1)
[2016-05-21 05:35] LABS: CREATININE 0.96 mg/dl (0.44-1.00); PHOSPHORUS 3.8 mg/dl (2.5-4.9)
[2016-05-21 05:36] LABS: CALCIUM 8.5 mg/dl (8.4-10.2); MAGNESIUM 1.7 mg/dl (1.7-2.5)
[2016-05-21] MEDS: LACTATED RINGER'S 1,000 ML IV SCH (05:49)
--- NOTE | 2016-05-21 05:56 | PN ---
Date/Time of Note Date/Time of Note DATE: 05/21/16 TIME: 05:51 Assessment/Plan VTE Prophylaxis VTE Prophylaxis Intervention: ambulation Lines/Catheters IV Catheter Type (from Nrs): Saline Lock Urinary Cath still in place: No Assessment/Plan Assessment/Plan 71 yo female who is here for left TKA few days ago now with change in mentation Tachycardia with change in mentation - will check EKG, CXR and Trop, TSH/Mag stat. If any changes, check with primary care team for next steps. Monitor closely. Continue with pulse ox and blood pressure monitoring. Fall precautions. All of the aforementioned was discussed with the primary team. this critical care note took greater than 45 min to complete Subjective 24 Hr Interval Summary Free Text/Dictation A rapid response was called on this patient 05/28 to the patient feeling "loopy". She went to the bathroom, and subsequently she felt disoriented. She denies any chest pain, does have shortness of breath. The nurse had evaluated her and noticed that she was tachycardiac to the 115 range. Otherwise she is sitting comfortably on her commode. Exam/Review of Systems Vital Signs Vitals Vital Signs Date Time Temp Pulse Resp B/P Pulse Ox O2 Delivery O2 Flow Rate FiO2 05/21/16 01:05 96 20 96 Nasal Cannula 2.0 05/20/16 19:00 98.5 101/62 Intake and Output 05/20/16 05/20/16 05/21/16 15:00 23:00 07:00 Intake Total 1160 ml 1500 ml Balance 1160 ml 1500 ml Exam Gen [place]: NAD, AAOx4, morbidly obese HEENT: NC/AT, PERRLA, EOMI, no pharyngeal erythema, no tonsillar exudates, no lymphadenopathy, no JVD, no carotid bruits NECK: supple, no thyromegaly THORAX: symmetrical, no obvious deformities CV: S1S2, RRR, no M/G/R Lungs: CTAB no W/C/R/R - no overt wheezing or rhonchi appreciated Abd: soft, NT/ND, +BS, no rebound, no guarding, neg HSM, protuberant EXT: no edema, no ecchymosis, no clubbing, FROM Neuro: CN II-XII grossly intact, no focal deficits Psych: fair mood and affect Skin: C/D/I Results Result Diagram: 05/20/16 0420 05/21/16 0418 Results 24 hrs Laboratory Tests Test 05/21/16 04:18 05/21/16 05:39 Anion Gap 13 Blood Urea Nitrogen 16 Calcium Level 8.5 Carbon Dioxide Level 28 Chloride Level 102 Creatinine 0.96 Glucose Level 104 Magnesium Level 1.7 Phosphorus Level 3.8 Potassium Level 4.3 Sodium Level 139 Bedside Glucose 102 Medications Medications Current Medications Lactated Ringer's (Lr) 1,000 ml @ 25 mls/hr Q24H IV ; Start 05/18/16 at 05:49 Hydromorphone HCl (Dilaudid) 1 mg Q3H PRN IV PAIN LEVEL 1-3 Last administered on 05/20/16 05:33; Admin Dose 1 MG; Start 05/18/16 at 07:00 Hydromorphone HCl (Dilaudid) 1.5 mg Q3H PRN IV PAIN LEVEL 4-6; Start 05/18/16 at 07:00 Hydromorphone HCl (Dilaudid) 2 mg Q3H PRN IV PAIN LEVEL 7-10 Last administered on 05/20/16 20:39; Admin Dose 2 MG; Start 05/18/16 at 07:00 Naloxone HCl (Narcan) 0.2 mg Q2M PRN IV RESPIRATORY RATE LESS THAN 8; Start at 07:00 Senna/Docusate Sodium (Senokot-S) 1 tab BID PO Last administered on 05/20/16 20:38; Admin Dose 1 TAB; Start 05/18/16 at 21:00 Magnesium Hydroxide (Milk Of Mag) 30 ml BID PRN PO CONSTIPATION; Start at 07:00 Magnesium Hydroxide (Milk Of Mag) 30 ml HS PO ; Start 05/20/16 at 21:00 Ondansetron HCl (Zofran Inj) 4 mg Q4H PRN IV NAUSEA Last administered on 20:39; Admin Dose 4 MG; Start 05/18/16 at 07:00 Metoclopramide HCl (Reglan) 10 mg BID PO Last administered on 05/20/16 20:38; Admin Dose 10 MG; Start 05/18/16 at 21:00 Aspirin 325 mg 325 mg BID PO Last administered on 05/20/16 20:38; Admin Dose 325 MG; Start 05/19/16 at 09:00 Potassium Chloride/Dextrose/ Sod Cl (D5-1/2ns + KCl 20 Meq) 1,000 ml @ 100 mls/ hr Q10H IV Last administered on 05/18/16 20:59; Admin Dose 100 MLS/HR; Start 05/18/16 at 10:00 Ascorbic Acid (Vitamin C) 500 mg DAILY PO Last administered on 05/20/16 09:55 ; Admin Dose 500 MG; Start 05/19/16 at 09:00 Bupropion HCl (Wellbutrin Xl) 300 mg DAILY PO Last administered on 05/20/16 09 :54; Admin Dose 300 MG; Start 05/19/16 at 09:00 Escitalopram Oxalate (Lexapro) 10 mg DAILY PO Last administered on 05/20/16 09 :55; Admin Dose 10 MG; Start 05/19/16 at 09:00 Isosorbide Mononitrate (Imdur) 90 mg DAILY PO Last administered on 05/20/16 15 :58; Admin Dose 90 MG; Start 05/19/16 at 09:00 Meclizine HCl (Antivert) 25 mg Q8H PRN PO DIZZINESS Last administered on 09:55; Admin Dose 25 MG; Start 05/18/16 at 19:00 Methylcellulose (Citrucel) 1 pkt DAILY PO Last administered on 05/20/16 09:54 ; Admin Dose 1 PKT; Start 05/19/16 at 09:00 Metoprolol Succinate (Toprol Xl) 25 mg DAILY PO Last administered on 05/20/16 11:56; Admin Dose 25 MG; Start 05/18/16 at 19:00 Ranolazine (Ranexa) 1,000 mg Q12 PO Last administered on 05/20/16 20:38; Admin Dose 1,000 MG; Start 05/18/16 at 21:00 Saccharomyces Boulardii (Florastor) 250 mg DAILY PO Last administered on 09:55; Admin Dose 250 MG; Start 05/19/16 at 09:00 Tiotropium [place] (Spiriva) 1 inh DAILY INH Last administered on 05/20/16 09: 54; Admin Dose 1 INH; Start 05/19/16 at 09:00 Pantoprazole (Protonix Tab) 40 mg DAILY@06 PO Last administered on 05/21/16 05 :02; Admin Dose 40 MG; Start 05/19/16 at 06:00 Atorvastatin Calcium (Lipitor) 80 mg DAILY@21 PO Last administered on 20:38; Admin Dose 80 MG; Start 05/18/16 at 21:00 Hydromorphone HCl (Dilaudid) 2 mg Q3H PRN PO PAIN; Start 05/19/16 at 08:00 Topiramate (Topamax) 75 mg HS PO Last administered on 05/20/16 20:39; Admin Dose 75 MG; Start 05/19/16 at 21:00 Sucralfate (Carafate) 1 gm TID PRN PO NAUSEA; Start 05/19/16 at 11:00 Phenol (Cepastat Lozenge) 1 lozenge Q1H PRN MT sore throat Last administered on 05/20/16 20:39; Admin Dose 1 LOZENGE; Start 05/19/16 at 17:00 Guaifenesin/ Dextromethorphan (Mucinex Dm) 1 tab BID PO Last administered on 20:38; Admin Dose 1 TAB; Start 05/20/16 at 09:00 COOPER RILEY MD May 21, 2016 05:56
[2016-05-21 06:17] LABS: CONDITION 1
[2016-05-21 07:23] LABS: MAGNESIUM 1.8 mg/dl (1.7-2.5)
[2016-05-21 07:32] LABS: CK-MB 2.12 ng/ml (0.0-2.4)
[2016-05-21 07:36] LABS: TROPONIN-I 0.021 ng/ml (0.00-0.12)
--- NOTE | 2016-05-21 07:45 | CONS ---
Date/Time of Note Date/Time of Note DATE: 05/21/16 TIME: 07:40 Assessment/Plan Assessment/Plan Additional Assessment/Plan 1. Post op left knee. 2. Transient impaired cognition prob sec to low bp 3. Abnl lung exam prob sec to bronchitis, PE to be r/o doubt pneumonia, chf, card and pul to see, ? steroids 4. Lethargic so reduced pain meds Consultation Date/Type/Reason Admit Date/Time May 18, 2016 at 05:32 24 HR Interval Summary Free Text/Dictation Rapid response was called as pt was not communicative when going to the bathroom , improved once was placed in bed. BP was 90 systolic Detailed Summary Respiratory: cough (is mild not productive, she denies chest pain and wheezing) Genitourinary: no complaints Musculoskeletal: bone/joint pain (mild left knee pain), no complaints Exam/Review of Systems Vital Signs Vitals Vital Signs Date Time Temp Pulse Resp B/P Pulse Ox O2 Delivery O2 Flow Rate FiO2 05/21/16 07:05 97 18 94/51 95 Nasal Cannula 2.0 05/20/16 19:00 98.5 Intake and Output 05/20/16 05/20/16 05/21/16 15:00 23:00 07:00 Intake Total 1160 ml 1500 ml Balance 1160 ml 1500 ml Exam Neck: No jvd Respiratory: diminished breath sounds (with few rhonhi and sl wheeze) Cardiovascular: regular rate and rhythm, No S3 Gastrointestinal: soft Extremities: No edema (right and left leg and and ? calf tend (left)) Results Result Diagram: 05/21/16 0418 05/21/16 0418 Results 24 hrs Laboratory Tests Test 05/21/16 04:18 05/21/16 05:39 Anion Gap 13 Basophils # 0.0 Basophils % 0.3 Blood Urea Nitrogen 16 Calcium Level 8.5 Carbon Dioxide Level 28 Chloride Level 102 Creatine Kinase 301 H Creatine Kinase Index 0.7 Creatinine 0.96 Creatinine Kinase MB (Mass) 2.12 Eosinophils # 0.3 Eosinophils % 3.4 Glucose Level 104 Hematocrit 32.2 L Hemoglobin 10.9 L Lymphocytes # 1.0 Lymphocytes % 11.5 L Magnesium Level 1.8 Mean Corpuscular Hemoglobin 32.3 Mean Corpuscular Hemoglobin Concent 34.0 Mean Corpuscular Volume 94.8 Mean Platelet Volume 7.4 Monocytes # 1.1 H Monocytes % 13.8 H Neutrophils # 5.9 Neutrophils % 71.0 Nucleated Red Blood Cells # 0.0 Nucleated Red Blood Cells % 0.0 Phosphorus Level 3.8 Platelet Count 169 Potassium Level 4.3 Red Blood Count 3.39 L Red Cell Distribution Width 13.0 Sodium Level 139 Thyroid Stimulating Hormone (TSH) Pending Troponin I Pending White Blood Count 8.3 Bedside Glucose 102 Medications Medications Current Medications Naloxone HCl (Narcan) 0.2 mg Q2M PRN IV RESPIRATORY RATE LESS THAN 8; Start at 07:00 Senna/Docusate Sodium (Senokot-S) 1 tab BID PO Last administered on 05/20/16 20:38; Admin Dose 1 TAB; Start 05/18/16 at 21:00 Magnesium Hydroxide (Milk Of Mag) 30 ml BID PRN PO CONSTIPATION; Start at 07:00 Magnesium Hydroxide (Milk Of Mag) 30 ml HS PO ; Start 05/20/16 at 21:00 Ondansetron HCl (Zofran Inj) 4 mg Q4H PRN IV NAUSEA Last administered on 20:39; Admin Dose 4 MG; Start 05/18/16 at 07:00 Aspirin (Ecotrin) 325 mg BID PO Last administered on 05/20/16 20:38; Admin Dose 325 MG; Start 05/19/16 at 09:00 Bupropion HCl (Wellbutrin Xl) 300 mg DAILY PO Last administered on 05/20/16 09 :54; Admin Dose 300 MG; Start 05/19/16 at 09:00 Escitalopram Oxalate (Lexapro) 10 mg DAILY PO Last administered on 05/20/16 09 :55; Admin Dose 10 MG; Start 05/19/16 at 09:00 Isosorbide Mononitrate (Imdur) 90 mg DAILY PO Last administered on 05/20/16 15 :58; Admin Dose 90 MG; Start 05/19/16 at 09:00 Methylcellulose (Citrucel) 1 pkt DAILY PO Last administered on 05/20/16 09:54 ; Admin Dose 1 PKT; Start 05/19/16 at 09:00 Metoprolol Succinate (Toprol Xl) 25 mg DAILY PO Last administered on 05/20/16 11:56; Admin Dose 25 MG; Start 05/18/16 at 19:00 Ranolazine (Ranexa) 1,000 mg Q12 PO Last administered on 05/20/16 20:38; Admin Dose 1,000 MG; Start 05/18/16 at 21:00 Saccharomyces Boulardii (Florastor) 250 mg DAILY PO Last administered on 09:55; Admin Dose 250 MG; Start 05/19/16 at 09:00 Tiotropium [place] (Spiriva) 1 inh DAILY INH Last administered on 05/20/16 09: 54; Admin Dose 1 INH; Start 05/19/16 at 09:00 Pantoprazole (Protonix Tab) 40 mg DAILY@06 PO Last administered on 05/21/16 05 :02; Admin Dose 40 MG; Start 05/19/16 at 06:00 Atorvastatin Calcium (Lipitor) 80 mg DAILY@21 PO Last administered on 20:38; Admin Dose 80 MG; Start 05/18/16 at 21:00 Topiramate (Topamax) 75 mg HS PO Last administered on 05/20/16 20:39; Admin Dose 75 MG; Start 05/19/16 at 21:00 Sucralfate (Carafate) 1 gm TID PRN PO NAUSEA; Start 05/19/16 at 11:00 Phenol (Cepastat Lozenge) 1 lozenge Q1H PRN MT sore throat Last administered on 05/20/16 20:39; Admin Dose 1 LOZENGE; Start 05/19/16 at 17:00 Guaifenesin/ Dextromethorphan (Mucinex Dm) 1 tab BID PO Last administered on 20:38; Admin Dose 1 TAB; Start 05/20/16 at 09:00 Hydromorphone HCl (Dilaudid) 1 mg Q6 PRN IV PAIN LEVEL 4-6; Start 05/21/16 at 12:00; Status UNV Azithromycin (Zithromax) 250 mg DAILY PO ; Start 05/21/16 at 09:00; Stop at 16:00 Hydromorphone HCl (Dilaudid) 1 mg Q6 PRN PO PAIN; Start 05/21/16 at 12:00; Status UNV KENTRELL MARKS MD May 21, 2016 07:44
[2016-05-21 07:54] LABS: THYROID STIMULATING HORMONE 1.4 MIU/L (0.465-4.680)
--- NOTE | 2016-05-21 08:25 | CONS ---
Date/Time of Note Date/Time of Note DATE: 05/21/16 TIME: :17 Assessment/Plan Assessment/Plan Chief Complaint/Hosp Course 1) AMS/Dizziness- lower bp at time, ? orthostasis vs. vagal. no syncope - cont monitoring - check orthostatics - avoid further diuretic for now - hold imdur/metoprolol given lower bp - ok to cont ranolazine - obtain echo - obtain ICD interrogation, will arrange 2) HOCM - avoid dehydration as could cause dizziness - obtain echo as s/p etoh ablation but still with outflow murmur - ICD interrogation as above 3) Micro vascular cad- h/o chest pain, no current pain - cont ranolazine as above - hold imdur given dizziness, lower bp 4) s/p icd- no shocks - interrogate device Problems: Consultation Date/Type/Reason Admit Date/Time May 18, 2016 at 05:32 Date of Consultation: May 21, 2016 Type of Consultation: Cardiology Reason for Consultation Dizziness Referring Provider: KENTRELL MARKS MD Hx of Present Illness 71 y.o. with h/o HOCM s/p ETOH ablation, ICD placement, Microvascular CAD follows with [facility] cardiology. Pt admitted for L knee replacement, doing well but had episode last night while walking to bathroom, sudden dizziness, fatigue. per report, [employer] called and pt not communicative when going to the bathroom, improved once was placed in bed. BP was 90 systolic pt states does not remember entire event, feels better now but has some fatigue. no cp, palpitations, fainting. no pnd, orhtopnea, edema. no shocks, though reports past inappropriate shock. EKG at time of event shows sinus tachy in 100s with ventricular pacing. labs unremarkable. Constitutional: no complaints Eyes: no complaints ENT: no complaints Respiratory: cough (is mild not productive, she denies chest pain and wheezing) Cardiovascular: lightheadedness, No chest pain Gastrointestinal: no complaints Genitourinary: no complaints Musculoskeletal: bone/joint pain (mild left knee pain), no complaints Neurologic: no complaints Endocrine: no complaints Psychological: no complaints Immunologic: no complaints Past Medical History 1. 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 2. Hypertrophic cardiomyopathy, having undergone ablation of her septum 3 years ago. 3. ICD placed prophylactically given HOCM 4. Hyperlipidemia. 5. Migraine headaches. 6. Depression. 7. History of peptic ulcer disease, now on a PPI. 8. Chest pain with microvascular disease Past Surgical History 1. Right [place] [address] Mullins. 2. Hysterectomy. 3. Cataract surgery. 4. Nasal surgery. 5. Right parotid gland surgery. Family History Significant Family History: heart disease Social History Alcohol Use: none Smoking Status: Never smoker Drug Use: none Exam/Review of Systems Vital Signs Vitals Vital Signs Date Time Temp Pulse Resp B/P Pulse Ox O2 Delivery O2 Flow Rate FiO2 05/21/16 07:55 98.0 95 18 90/54 95 05/21/16 07:05 Nasal Cannula 2.0 Intake and Output 05/20/16 05/20/16 05/21/16 15:00 23:00 07:00 Intake Total 1160 ml 1500 ml Balance 1160 ml 1500 ml Exam Constitutional: alert, oriented Psych: no complaints Head: atraumatic, normocephalic Eyes: nl conjunctiva ENMT: nl external ears & nose, nl lips & teeth, nl nasal mucosa & septum Neck: non-tender, supple, No jvd Respiratory: clear to auscultation, normal air movement Cardiovascular: nl pulses, regular rate and rhythm, systolic murmur, No S3, No S4 Gastrointestinal: non-tender, soft Musculoskeletal: nl extremities to inspection, No nl gait and stance Extremities: normal pulses Neurological: BULK SYSTEM OPERATOR II-XII intact, nl mental status, nl speech, nl strength Results Result Diagram: 05/21/16 0418 05/21/16 0418 Results 24 hrs Laboratory Tests Test 05/21/16 04:18 05/21/16 05:39 05/21/16 08:10 Anion Gap 13 Basophils # 0.0 Basophils % 0.3 Blood Urea Nitrogen 16 Calcium Level 8.5 Carbon Dioxide Level 28 Chloride Level 102 Creatine Kinase 301 H Creatine Kinase Index 0.7 Creatinine 0.96 Creatinine Kinase MB (Mass) 2.12 Eosinophils # 0.3 Eosinophils % 3.4 Glucose Level 104 Hematocrit 32.2 L Hemoglobin 10.9 L Lymphocytes # 1.0 Lymphocytes % 11.5 L Magnesium Level 1.8 Mean Corpuscular Hemoglobin 32.3 Mean Corpuscular Hemoglobin Concent 34.0 Mean Corpuscular Volume 94.8 Mean Platelet Volume 7.4 Monocytes # 1.1 H Monocytes % 13.8 H Neutrophils # 5.9 Neutrophils % 71.0 Nucleated Red Blood Cells # 0.0 Nucleated Red Blood Cells % 0.0 Phosphorus Level 3.8 Platelet Count 169 Potassium Level 4.3 Red Blood Count 3.39 L Red Cell Distribution Width 13.0 Sodium Level 139 Thyroid Stimulating Hormone (TSH) 1.400 Troponin I 0.021 White Blood Count 8.3 Bedside Glucose 102 106 Medications Medications Current Medications Naloxone HCl (Narcan) 0.2 mg Q2M PRN IV RESPIRATORY RATE LESS THAN 8; Start at 07:00 Senna/Docusate Sodium (Senokot-S) 1 tab BID PO Last administered on 05/20/16 20:38; Admin Dose 1 TAB; Start 05/18/16 at 21:00 Magnesium Hydroxide (Milk Of Mag) 30 ml BID PRN PO CONSTIPATION; Start at 07:00 Magnesium Hydroxide (Milk Of Mag) 30 ml HS PO ; Start 05/20/16 at 21:00 Ondansetron HCl (Zofran Inj) 4 mg Q4H PRN IV NAUSEA Last administered on 20:39; Admin Dose 4 MG; Start 05/18/16 at 07:00 Aspirin (Ecotrin) 325 mg BID PO Last administered on 05/20/16 20:38; Admin Dose 325 MG; Start 05/19/16 at 09:00 Bupropion HCl (Wellbutrin Xl) 300 mg DAILY PO Last administered on 05/20/16 09 :54; Admin Dose 300 MG; Start 05/19/16 at 09:00 Escitalopram Oxalate (Lexapro) 10 mg DAILY PO Last administered on 05/20/16 09 :55; Admin Dose 10 MG; Start 05/19/16 at 09:00 Isosorbide Mononitrate (Imdur) 90 mg DAILY PO Last administered on 05/20/16 15 :58; Admin Dose 90 MG; Start 05/19/16 at 09:00 Methylcellulose (Citrucel) 1 pkt DAILY PO Last administered on 05/20/16 09:54 ; Admin Dose 1 PKT; Start 05/19/16 at 09:00 Metoprolol Succinate (Toprol Xl) 25 mg DAILY PO Last administered on 05/20/16 11:56; Admin Dose 25 MG; Start 05/18/16 at 19:00 Ranolazine (Ranexa) 1,000 mg Q12 PO Last administered on 05/20/16 20:38; Admin Dose 1,000 MG; Start 05/18/16 at 21:00 Saccharomyces Boulardii (Florastor) 250 mg DAILY PO Last administered on 09:55; Admin Dose 250 MG; Start 05/19/16 at 09:00 Tiotropium [place] (Spiriva) 1 inh DAILY INH Last administered on 05/20/16 09: 54; Admin Dose 1 INH; Start 05/19/16 at 09:00 Pantoprazole (Protonix Tab) 40 mg DAILY@06 PO Last administered on 05/21/16 05 :02; Admin Dose 40 MG; Start 05/19/16 at 06:00 Atorvastatin Calcium (Lipitor) 80 mg DAILY@21 PO Last administered on 20:38; Admin Dose 80 MG; Start 05/18/16 at 21:00 Topiramate (Topamax) 75 mg HS PO Last administered on 05/20/16 20:39; Admin Dose 75 MG; Start 05/19/16 at 21:00 Sucralfate (Carafate) 1 gm TID PRN PO NAUSEA; Start 05/19/16 at 11:00 Phenol (Cepastat Lozenge) 1 lozenge Q1H PRN MT sore throat Last administered on 05/20/16 20:39; Admin Dose 1 LOZENGE; Start 05/19/16 at 17:00 Guaifenesin/ Dextromethorphan (Mucinex Dm) 1 tab BID PO Last administered on 20:38; Admin Dose 1 TAB; Start 05/20/16 at 09:00 Hydromorphone HCl (Dilaudid) 1 mg Q6H PRN IV PAIN LEVEL 4-6; Start 05/21/16 at 08:00 Azithromycin (Zithromax) 250 mg DAILY PO ; Start 05/21/16 at 09:00; Stop at 16:00 Procedures Procedures primary/regional engagement consultant physicians note/chart reviewed cxr images reviewed- ppm + , no acute abnl MAR POSADA May 21, 2016 08:25
[2016-05-21] MEDS: IPRATROPIUM (NEB) 0.5 MG/2.5 ML AMP HHN SCH ×3 (08:42→20:09)
[2016-05-21] MEDS: METHYLCELLULOSE PACKET PO SCH (09:00)
--- NOTE | 2016-05-21 09:01 | RADRPT ---
PROCEDURE: US DVT. CLINICAL INDICATION: Status post left total knee replacement. Shortness of breath. Evaluate for d eep venous thrombosis.. TECHNIQUE: Multiple longitudinal and transverse images of the bilateral lower extremity veins were obtained with gaming scale and color Doppler imaging. 2D grayscale measurements with compression, co sean Doppler flow, and augmentation was performed. The calf veins were interrogated as well. COMPARISON: No prior studies are available for comparison. FINDINGS: The bilateral common femoral, superficial femoral and popliteal veins are normally compressible thro ughout. Color flow demonstrates normal filling of the vessel. Normal waveforms are visualized and there is normal response to augmentation. The calf veins are visualized and are equally unremarkabl e. IMPRESSION: 1. No evidence of a deep vein thrombosis involving either lower extremity. RPTAT: [facility] Physician Joss Date Time Electronically viewed and signed by Physician Joss on 05/21/2016 09:01 [email or web address]/
[2016-05-21] MEDS: BUPROPION (XL) 150 MG TAB PO SCH (09:09)
[2016-05-21] MEDS: RANOLAZINE (SR) 500 MG TAB PO SCH ×2 (09:09→20:54)
[2016-05-21] MEDS: ASPIRIN (EC) 325 MG TAB PO SCH ×2 (09:09→20:55)
[2016-05-21] MEDS: AZITHROMYCIN 250 MG TAB PO SCH (09:10)
[2016-05-21] MEDS: ESCITALOPRAM 10 MG TAB PO SCH (09:10)
[2016-05-21] MEDS: SENNA/DOCUSATE NA (8.6MG/50MG) TAB PO SCH ×2 (09:10→20:55)
[2016-05-21] MEDS: HYDROmorphONE 1 MG/ML SYG IV PRN ×2 (09:11→21:15)
[2016-05-21 09:15] LABS: AADO2 Arterial 54.1 mmHg (7.0-24.0); Allen Test ACCEPTAB; Arterial Base Excess -1.2 mmol/L (-3.0-3); Arterial COHb 0.3 % (0.0-3.0); Arterial Fraction of Oxyhgb 96.1 % (93.0-99.0); Arterial HCO3 23.9 mmol/L (22.0-26.0); Arterial MetHb 0.2 % (0.0-1.5); Arterial Total Hemglobin 12.1 g/dl (12.0-18.0); MODE NASAL CANNULA
[2016-05-21] MEDS: SACCHAROMYCES BOULARDII 250 MG CAP PO SCH (10:12)
[2016-05-21] MEDS: TIOTROPIUM 18 MCG CAPSULE INHA DEV INH SCH (10:12)
--- NOTE | 2016-05-21 10:15 | CONS ---
Date/Time of Note Date/Time of Note DATE: 05/21/16 TIME: 10:06 Assessment/Plan Assessment/Plan Additional Assessment/Plan Assessment and recommendations; 1. Patient admitted for left total knee arthroplasty surgery was uneventful patient had a near syncopal episode this morning while trying to get out of bed likely from orthostatic hypotension. 2. Stable COPD. 3. ABG reviewed from today which is essentially unremarkable on 27% FiO2. Next 4. Clinically there is no evidence of any pulmonary embolic event. She also underwent ultrasound of lower extremities which is negative for DVT. Next 5. History of HOCM status post ablation. Next 6. History of pacemaker implantation. Pacemeker to be evaluated by installer technician. Continue current treatment for now. Consultation Date/Type/Reason Admit Date/Time May 18, 2016 at 05:32 Date of Consultation: May 21, 2016 Type of Consultation: pulmonary Reason for Consultation She is admitted for total left knee replacement and developed shortness of breath this morning as well as near syncope. Hx of Present Illness Patient is a very pleasant 71-year-old white lady who was admitted on the of this month for left total knee arthroplasty which was uneventful the patient was doing fairly well on the medical floor however this morning the patient to get up and got dizzy rapid response was called and the patient was transferred to telemetry unit and without any further intervention the patient symptoms got significantly improved the patient denies any further dizziness any headache chest pain is very minimal shortness of breath. On a chronic basis the patient does complain of COPD symptoms as she has been exposed to a lot of secondhand smoke at work and at home uses long-acting bronchodilators as well as inhaled steroids for relief of chronic symptoms. Currently denies any chest pain and hemoptysis coughing sputum production abdominal pain nausea vomiting. The left knee pain is quite tolerable. Has any leg swelling. Has any headache, seizures. Past medical history; 1.Patient has a history of HOCM status post ablation and pacemaker implantation. 2. 2 years ago patient underwent right total knee arthroplasty. And prior to that ablation procedure was done. 3. Status post a hysterectomy. And multiple minor left hand surgeries. Status post right shoulder surgery. 4. History of COPD. 5. No known history of coronary artery disease. Medications; reviewed. Social history patient never smoked herself but was exposed to secondhand smoke at work at it home. Family history; patient is . Most of any illnesses. 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 Next Review of systems; patient denies any headache denies any further dizziness denies any visual complaints seizures chest pain angina wheezing cough does complain of chronic shortness of breath to come to the very minimal shortness of breath currently denies any abdominal pain nausea vomiting. Denies any lower extremity edema. Does complain of chronic dyspnea on exertion. Without any interval change. Denies any fever chills. Denies any melena hematochezia urinary symptoms. Denies any weight change. There is a minimal left knee pain. Respiratory: cough (is mild not productive, she denies chest pain and wheezing) Cardiovascular: No chest pain Gastrointestinal: no complaints Genitourinary: no complaints Musculoskeletal: bone/joint pain (mild left knee pain), no complaints Social History Smoking Status: Never smoker Exam/Review of Systems Vital Signs Vitals Vital Signs Date Time Temp Pulse Resp B/P Pulse Ox O2 Delivery O2 Flow Rate FiO2 05/21/16 09:25 87 05/21/16 09:00 Nasal Cannula 2.0 05/21/16 08:44 14 94 05/21/16 08:42 98.6 113/59 Intake and Output 05/20/16 05/20/16 05/21/16 15:00 23:00 07:00 Intake Total 1160 ml 1500 ml Balance 1160 ml 1500 ml Exam HEENT examination; supple neck, no JVD, no lymphadenopathy. Fair dentition. Pharynx is clear. No thyromegaly. No neck bruits.; CHEST: Diminished but clear breath sounds bilaterally S1-S2 audible there is a very soft systolic ejection murmur grade 1/6. Regular rate and rhythm. There is a pacemaker in the left chest wall. Abdomen examination: Soft, nontender. No organomegaly. Bowel sounds audible. Next Extremity examination: there is no peripheral edema. Pulses 1+ bilaterally. Left knee is a brace. Multiple well-healed scars involving the left hand as well as well-healed scar involving the right knee. Next FARM ADVISOR examination: cranial nerves are grossly normal there is no motor sensory deficit. Results Result Diagram: 05/21/16 0418 05/21/16 0418 Results 24 hrs Laboratory Tests Test 05/21/16 04:18 05/21/16 05:39 05/21/16 08:00 05/21/16 08:10 Anion Gap 13 Basophils # 0.0 Basophils % 0.3 Blood Urea Nitrogen 16 Calcium Level 8.5 Carbon Dioxide Level 28 Chloride Level 102 Creatine Kinase 301 H Creatine Kinase Index 0.7 Creatinine 0.96 Creatinine Kinase MB (Mass) 2.12 Eosinophils # 0.3 Eosinophils % 3.4 Glucose Level 104 Hematocrit 32.2 L Hemoglobin 10.9 L Lymphocytes # 1.0 Lymphocytes % 11.5 L Magnesium Level 1.8 Mean Corpuscular Hemoglobin 32.3 Mean Corpuscular Hemoglobin Concent 34.0 Mean Corpuscular Volume 94.8 Mean Platelet Volume 7.4 Monocytes # 1.1 H Monocytes % 13.8 H Neutrophils # 5.9 Neutrophils % 71.0 Nucleated Red Blood Cells # 0.0 Nucleated Red Blood Cells % 0.0 Phosphorus Level 3.8 Platelet Count 169 Potassium Level 4.3 Red Blood Count 3.39 L Red Cell Distribution Width 13.0 Sodium Level 139 Thyroid Stimulating Hormone (TSH) 1.400 Troponin I 0.021 White Blood Count 8.3 Bedside Glucose 102 106 Arterial Blood HCO3 23.9 Arterial Blood Base Excess -1.2 Arterial Blood Oxygen Saturation 96.6 Chadd Test ACCEPTAB Arterial Blood Gas Puncture Site Right Radial Arterial Blood Carboxyhemoglobin 0.3 Arterial Blood Date Drawn 05/21/2016 9:06:55 AM Arterial Blood Methemoglobin 0.2 Arterial Blood pCO2 (Temp correct) 41.5 Arterial Blood pH (Temp corrected) 7.378 Arterial Blood pO2 (Temp corrected) 89.3 Blood Gas A-a O2 Differential 54.1 H Blood Gas Modality NASAL CANNULA Blood Gas Notified Time 05/21/2016 9:15:24 AM Blood Gas Notified Whom TM Blood Gas Specimen Source Blood arterial Blood Gas Temperature 37.0 FiO2 27.0 Oxyhemoglobin Percent 96.1 Total Hemoglobin 12.1 Medications Medications Current Medications Naloxone HCl (Narcan) 0.2 mg Q2M PRN IV RESPIRATORY RATE LESS THAN 8; Start at 07:00 Senna/Docusate Sodium (Senokot-S) 1 tab BID PO Last administered on 05/21/16 09:10; Admin Dose 1 TAB; Start 05/18/16 at 21:00 Magnesium Hydroxide (Milk Of Mag) 30 ml BID PRN PO CONSTIPATION Last administered on 05/21/16 09:09; Admin Dose 30 ML; Start 05/18/16 at 07:00 Magnesium Hydroxide (Milk Of Mag) 30 ml HS PO ; Start 05/20/16 at 21:00 Ondansetron HCl (Zofran Inj) 4 mg Q4H PRN IV NAUSEA Last administered on 20:39; Admin Dose 4 MG; Start 05/18/16 at 07:00 Aspirin (Ecotrin) 325 mg BID PO Last administered on 05/21/16 09:09; Admin Dose 325 MG; Start 05/19/16 at 09:00 Bupropion HCl (Wellbutrin Xl) 300 mg DAILY PO Last administered on 05/21/16 09 :09; Admin Dose 300 MG; Start 05/19/16 at 09:00 Escitalopram Oxalate (Lexapro) 10 mg DAILY PO Last administered on 05/21/16 09 :10; Admin Dose 10 MG; Start 05/19/16 at 09:00 Isosorbide Mononitrate (Imdur) 90 mg DAILY PO Last administered on 05/20/16 15 :58; Admin Dose 90 MG; Start 05/19/16 at 09:00; Status Future Hold Methylcellulose (Citrucel) 1 pkt DAILY PO Last administered on 05/20/16 09:54 ; Admin Dose 1 PKT; Start 05/19/16 at 09:00 Metoprolol Succinate (Toprol Xl) 25 mg DAILY PO Last administered on 05/20/16 11:56; Admin Dose 25 MG; Start 05/18/16 at 19:00; Status Future Hold Ranolazine (Ranexa) 1,000 mg Q12 PO Last administered on 05/21/16 09:09; Admin Dose 1,000 MG; Start 05/18/16 at 21:00 Saccharomyces Boulardii (Florastor) 250 mg DAILY PO Last administered on 09:55; Admin Dose 250 MG; Start 05/19/16 at 09:00 Tiotropium [place] (Spiriva) 1 inh DAILY INH Last administered on 05/20/16 09: 54; Admin Dose 1 INH; Start 05/19/16 at 09:00 Pantoprazole (Protonix Tab) 40 mg DAILY@06 PO Last administered on 05/21/16 05 :02; Admin Dose 40 MG; Start 05/19/16 at 06:00 Atorvastatin Calcium (Lipitor) 80 mg DAILY@21 PO Last administered on 20:38; Admin Dose 80 MG; Start 05/18/16 at 21:00 Topiramate (Topamax) 75 mg HS PO Last administered on 05/20/16 20:39; Admin Dose 75 MG; Start 05/19/16 at 21:00 Sucralfate (Carafate) 1 gm TID PRN PO NAUSEA; Start 05/19/16 at 11:00 Phenol (Cepastat Lozenge) 1 lozenge Q1H PRN MT sore throat Last administered on 05/20/16 20:39; Admin Dose 1 LOZENGE; Start 05/19/16 at 17:00 Guaifenesin/ Dextromethorphan (Mucinex Dm) 1 tab BID PO Last administered on 20:38; Admin Dose 1 TAB; Start 05/20/16 at 09:00 Hydromorphone HCl (Dilaudid) 1 mg Q6H PRN IV PAIN LEVEL 4-6 Last administered on 05/21/16 09:11; Admin Dose 1 MG; Start 05/21/16 at 08:00 Azithromycin (Zithromax) 250 mg DAILY PO Last administered on 05/21/16 09:10; Admin Dose 250 MG; Start 05/21/16 at 09:00; Stop 05/24/16 at 16:00 LALO LESTER May 21, 2016 10:15
[2016-05-21] MEDS ORDERED: IODIXANOL LOCM 100 ML BTL ONE (10:23)
[2016-05-21] MEDS ORDERED: SOD CHLORIDE 0.9% 100 ML ONE (10:23)
[2016-05-21] MEDS ORDERED: IODIXANOL LOCM 50 ML BTL ONE (10:23)
[2016-05-21] MEDS ORDERED: HYDROmorphONE 2 MG TAB PO PRN (12:00)
[2016-05-21] MEDS: GUAIFENESIN/DM (SR) TAB PO SCH ×2 (12:01→20:54)
--- NOTE | 2016-05-21 13:51 | RADRPT ---
PROCEDURE: CT Pulmonary Angiogram. CLINICAL INDICATION: Chest pain and shortness of breath. TECHNIQUE: CT pulmonary angiogram and a CT scan of the chest with contrast was performed. The pat ient was scanned following the uncomplicated intravenous administration of 125 cc of Visipaque 320 i ntravenous contrast. 2-D coronal reformatted images were obtained from the axial source images. In addition, 3-D post processing was performed. Total exam DLP is 664.82 mGy-cm. CTDIvol is 49.29 mG y. One or more of the following dose reduction techniques were used: Automated exposure control, ad justment of the mA and/or kV according to patient size, use of iterative reconstruction technique. COMPARISON: Chest radiograph dated 05/19/2016. FINDINGS: There is enlargement of the central pulmonary arteries consistent with pulmonary artery hypertension . The pulmonary arteries are otherwise normal with no filling defect or lack of enhancement to sugg est pulmonary artery embolism. There is mild atelectasis at the lung bases posteriorly. The lungs are otherwise clear. There is no pulmonary nodule or mass lesion. There is no pneumothorax. There is no mediastinal or hilar lymphadenopathy or mass. There is no pleural effusion. There is no pericardial effusion. The thoracic aorta is normal with no aneurysm or dissection. The heart is enlarged. There is a left -sided dual lead permanent pacemaker/internal cardiac defibrillator in satisfactory position. There is a right internal jugular vein implanted port central venous catheter with the tip in the lower s uperior vena cava. Images through the upper abdomen demonstrate normal visualized portions of the liver, spleen, and ad renals. There are mild degenerative changes of the spine. There is no fracture or lytic lesion. IMPRESSION: 1. Pulmonary artery hypertension. 2. Otherwise normal CT pulmonary angiogram with no evidence of pulmonary artery embolism. 3. Mild atelectasis at the lung bases posteriorly. 4. Cardiomegaly. 5. Left-sided dual lead permanent pacemaker/internal cardiac defibrillator. 6. Right internal jugular vein implanted port central venous catheter in satisfactory position. 7. Mild degenerative changes of the spine. RPTAT: QQ .Amos Ramos MD, MD Date Time Electronically viewed and signed by .Amos Ramos MD, on 05/21/2016 13:50 .R/
[2016-05-21] MEDS: MAGNESIUM HYDROXIDE 30ML CUP PO SCH ×2 (20:54→20:58)
[2016-05-21] MEDS: ATORVASTATIN 80 MG TAB PO SCH (20:55)
[2016-05-21] MEDS: TOPIRAMATE 25 MG TAB PO SCH (21:58)
[2016-05-22] VITALS (12 sets, daily range): BP systolic 100–133; BP diastolic 50–57; PULSE 76–110; RESP 18–20
[2016-05-22] MEDS: LEVALBUTEROL (NEB) 0.63 MG/3 ML AMP HHN SCH ×4 (01:18→20:48)
[2016-05-22] MEDS: PANTOPRAZOLE (EC) 40 MG TAB PO SCH (05:48)
[2016-05-22 06:58] LABS: POTASSIUM 4.1 mmol/L (3.5-5.1)
[2016-05-22 07:00] LABS: BASOPHILS % 0.3 % (0.0-2.0); EOSINOPHILS # 0.2 10^3/ul (0.0-0.5); EOSINOPHILS % 2.6 % (0.0-7.0); HEMATOCRIT 31.2 % (37.0-47.0); LYMPHOCYTES % 13.5 % (15.0-51.0); MEAN CORPUSCULAR HGB CONC 35.1 g/dl (32.0-37.0); MEAN CORPUSCULAR VOLUME 93.9 fl (82.0-101.0); MEAN PLATELET VOLUME 7.4 fl (7.4-10.4); MONOCYTE # 0.9 10^3/ul (0.3-0.9); MONOCYTES % 12.8 % (0.0-11.0); NEUTROPHILS % 70.8 % (39.0-77.0); PLATELET COUNT 171 10^3/UL (140-440); RED BLOOD COUNT 3.33 10^6/ul (4.20-5.40); RED CELL DISTRIBUTION WIDTH 12.8 % (11.5-14.5); UNCORRECTED WBC 7.1 10^3/ul (4.8-10.8); WHITE BLOOD COUNT 7.1 10^3/ul (4.8-10.8)
[2016-05-22 07:01] LABS: CREATININE 0.85 mg/dl (0.44-1.00); PHOSPHORUS 3.7 mg/dl (2.5-4.9)
[2016-05-22 07:02] LABS: CALCIUM 8.6 mg/dl (8.4-10.2); MAGNESIUM 2.1 mg/dl (1.7-2.5)
[2016-05-22 07:19] LABS: CONDITION 1
--- NOTE | 2016-05-22 07:24 | CONS ---
Date/Time of Note Date/Time of Note DATE: 05/22/16 TIME: 07:22 Assessment/Plan Assessment/Plan Additional Assessment/Plan 1. Doing very well post op left knee, needs a bit more therapy and can be dc tomm. 2. Asthmatic bronchitis resolving with HHN and Zithromax 3. Hypertrophic cardiomyopathy, stable, echocardiogram interpret pending. Consultation Date/Type/Reason Admit Date/Time May 18, 2016 at 05:32 Type of Consultation: pulmonary Detailed Summary Respiratory: cough (is much improved, dry and not wheezing) Cardiovascular: No chest pain Gastrointestinal: no complaints Genitourinary: no complaints Exam/Review of Systems Vital Signs Vitals Vital Signs Date Time Temp Pulse Resp B/P Pulse Ox O2 Delivery O2 Flow Rate FiO2 05/22/16 07:15 97.8 82 18 104/53 97 05/22/16 01:18 Nasal Cannula 3.0 Intake and Output 05/21/16 05/21/16 05/22/16 15:00 23:00 07:00 Intake Total 920 ml 200 ml Balance 920 ml 200 ml Exam Neck: No jvd Respiratory: other (only few rhonchi are present without rales or wheezing ) Cardiovascular: regular rate and rhythm Gastrointestinal: soft Extremities: No edema (and no calf tend bilat) Results Result Diagram: 05/22/16 0515 05/22/16 0540 Results 24 hrs Laboratory Tests Test 05/21/16 08:00 05/21/16 08:10 05/22/16 05:15 05/22/16 05:40 Arterial Blood HCO3 23.9 Arterial Blood Base Excess -1.2 Arterial Blood Oxygen Saturation 96.6 Chadd Test ACCEPTAB Arterial Blood Gas Puncture Site Right Radial Arterial Blood Carboxyhemoglobin 0.3 Arterial Blood Date Drawn 05/21/2016 9:06:55 AM Arterial Blood Methemoglobin 0.2 Arterial Blood pCO2 (Temp correct) 41.5 Arterial Blood pH (Temp corrected) 7.378 Arterial Blood pO2 (Temp corrected) 89.3 Blood Gas A-a O2 Differential 54.1 H Blood Gas Modality NASAL CANNULA Blood Gas Notified Time 05/21/2016 9:15:24 AM Blood Gas Notified Whom TM Blood Gas Specimen Source Blood arterial Blood Gas Temperature 37.0 FiO2 27.0 Oxyhemoglobin Percent 96.1 Total Hemoglobin 12.1 Bedside Glucose 106 Basophils # 0.0 Basophils % 0.3 Eosinophils # 0.2 Eosinophils % 2.6 Hematocrit 31.2 L Hemoglobin 11.0 L Lymphocytes # 1.0 Lymphocytes % 13.5 L Mean Corpuscular Hemoglobin 33.0 Mean Corpuscular Hemoglobin Concent 35.1 Mean Corpuscular Volume 93.9 Mean Platelet Volume 7.4 Monocytes # 0.9 Monocytes % 12.8 H Neutrophils # 5.0 Neutrophils % 70.8 Nucleated Red Blood Cells # 0.0 Nucleated Red Blood Cells % 0.0 Platelet Count 171 Red Blood Count 3.33 L Red Cell Distribution Width 12.8 White Blood Count 7.1 Anion Gap 12 Blood Urea Nitrogen 14 Calcium Level 8.6 Carbon Dioxide Level 27 Chloride Level 104 Creatinine 0.85 Glucose Level 100 Magnesium Level 2.1 Phosphorus Level 3.7 Potassium Level 4.1 Sodium Level 139 Medications Medications Current Medications Naloxone HCl (Narcan) 0.2 mg Q2M PRN IV RESPIRATORY RATE LESS THAN 8; Start at 07:00 Senna/Docusate Sodium (Senokot-S) 1 tab BID PO Last administered on 05/21/16 20:55; Admin Dose 1 TAB; Start 05/18/16 at 21:00 Magnesium Hydroxide (Milk Of Mag) 30 ml BID PRN PO CONSTIPATION Last administered on 05/21/16 09:09; Admin Dose 30 ML; Start 05/18/16 at 07:00 Magnesium Hydroxide (Milk Of Mag) 30 ml HS PO ; Start 05/20/16 at 21:00 Ondansetron HCl (Zofran Inj) 4 mg Q4H PRN IV NAUSEA Last administered on 20:39; Admin Dose 4 MG; Start 05/18/16 at 07:00 Aspirin (Ecotrin) 325 mg BID PO Last administered on 05/21/16 20:55; Admin Dose 325 MG; Start 05/19/16 at 09:00 Bupropion HCl (Wellbutrin Xl) 300 mg DAILY PO Last administered on 05/21/16 09 :09; Admin Dose 300 MG; Start 05/19/16 at 09:00 Escitalopram Oxalate (Lexapro) 10 mg DAILY PO Last administered on 05/21/16 09 :10; Admin Dose 10 MG; Start 05/19/16 at 09:00 Isosorbide Mononitrate (Imdur) 90 mg DAILY PO Last administered on 05/20/16 15 :58; Admin Dose 90 MG; Start 05/19/16 at 09:00; Status Future Hold Methylcellulose (Citrucel) 1 pkt DAILY PO Last administered on 05/21/16 09:00 ; Admin Dose 1 PKT; Start 05/19/16 at 09:00 Metoprolol Succinate (Toprol Xl) 25 mg DAILY PO Last administered on 05/20/16 11:56; Admin Dose 25 MG; Start 05/18/16 at 19:00; Status Future Hold Ranolazine (Ranexa) 1,000 mg Q12 PO Last administered on 05/21/16 20:54; Admin Dose 1,000 MG; Start 05/18/16 at 21:00 Saccharomyces Boulardii (Florastor) 250 mg DAILY PO Last administered on 10:12; Admin Dose 250 MG; Start 05/19/16 at 09:00 Tiotropium [place] (Spiriva) 1 inh DAILY INH Last administered on 05/21/16 10: 12; Admin Dose 1 INH; Start 05/19/16 at 09:00 Pantoprazole (Protonix Tab) 40 mg DAILY@06 PO Last administered on 05/22/16 05 :48; Admin Dose 40 MG; Start 05/19/16 at 06:00 Atorvastatin Calcium (Lipitor) 80 mg DAILY@21 PO Last administered on 20:55; Admin Dose 80 MG; Start 05/18/16 at 21:00 Topiramate (Topamax) 75 mg HS PO Last administered on 05/21/16 21:58; Admin Dose 75 MG; Start 05/19/16 at 21:00 Sucralfate (Carafate) 1 gm TID PRN PO NAUSEA; Start 05/19/16 at 11:00 Phenol (Cepastat Lozenge) 1 lozenge Q1H PRN MT sore throat Last administered on 05/20/16 20:39; Admin Dose 1 LOZENGE; Start 05/19/16 at 17:00 Guaifenesin/ Dextromethorphan (Mucinex Dm) 1 tab BID PO Last administered on 20:54; Admin Dose 1 TAB; Start 05/20/16 at 09:00 Hydromorphone HCl (Dilaudid) 1 mg Q6H PRN IV PAIN LEVEL 4-6 Last administered on 05/21/16 21:15; Admin Dose 1 MG; Start 05/21/16 at 08:00 Azithromycin (Zithromax) 250 mg DAILY PO Last administered on 05/21/16 09:10; Admin Dose 250 MG; Start 05/21/16 at 09:00; Stop 05/24/16 at 16:00 KENTRELL MARKS MD May 22, 2016 07:24
[2016-05-22] MEDS ORDERED: ACETAMINOPHEN 325 MG TAB PO PRN (07:30)
[2016-05-22] MEDS: IPRATROPIUM (NEB) 0.5 MG/2.5 ML AMP HHN SCH ×3 (08:12→20:48)
--- NOTE | 2016-05-22 08:40 | RADRPT ---
Echocardiogram Report Patient Name: TAMICA NGUYEN Gender: Female Date: 1945 Study Date: 21-May-2016 Suede Brusher: [facility] Location: [id number] Ref. Physician: KENTRELL MARKS Quality: Technically Difficult Study Procedures: Transthoracic echocardiogram with complete 2D, M-Mode, and doppler examination. Indications: Shortness of breath. 2D/M Mode Doppler Measurement Value Normal Ranges Measurement Value Normal Ranges LVIDd 2D 4.1 3.5 - 5.6 cm AV Mean Alexey 1.5 m/sec LVIDs 2D 2.9 2.1 - 4.1 cm AV Mean PG 11.0 mmHg FS 2D 30.1 % AV Peak Alexey 2.2 m/sec LVPWd 2D 1.4 0.6 - 1.1 cm AV Peak PG 19.0 mmHg IVSd 2D 1.4 0.6 - 1.1 cm AV VTI 48.1 cm IVS/LVPW 2D 1.0 LVOT Peak Alexey 1.8 m/sec AoR Diam 2D 3.1 2.0 - 3.7 cm LVOT Peak PG 14.0 mmHg LA/Ao 2D 1 0 - 1 MV E Peak Alexey 1.4 m/sec EDV 2D 68.4 cm3 MV Decel Time 204 msec ESV 2D 23.4 cm3 TR Peak Alexey 2.7 m/sec LA Dimen 2D 4.3 2.3 - 4.0 cm TR Peak PG 28.0 mmHg Findings Left Ventricle: Normal left ventricular systolic function. Normal left ventricular cavity size. Moderate concentric left ventricular hypertrophy. Ejection fraction is visually estimated at 55 %. Tissue Doppler/Mitral Doppler indices are indeterminate in this study due to fusion of e/a waves. Max PG19 mmHg. These segments of the LV are hypokinetic mid septum segment and septum base segment. Right Ventricle: Normal right ventricular size. Normal right ventricular systolic function. Pacemaker/ICD wire noted right heart. Left Atrium: There is mild enlargement of left atrium. Right Atrium: The right atrium is normal in size. Mitral Valve: Mild mitral annular calcification. Trace mitral regurgitation. Aortic Valve: Normal appearance of the aortic valve. Mild sub aortic aortic stenosis. Aortic valve Max velocity 2.16 m/sec. Max PG 19 mmHg. Mean PG 11 mmHg. Trileaflet aortic valve. Tricuspid Valve: Normal appearance of the tricuspid valve. Right ventricular systolic pressure is consistent with mild pulmonary hypertension. Estimated peak PA systolic pressure 31 mmHg. There is mild tricuspid regurgitation. Pulmonic Valve: Pulmonic valve not well visualized. Pericardium: Normal pericardium with no significant pericardial effusion. Aorta: Normal aortic root. IVC: Normal size and normal respiratory collapse consistent with normal right atrial pressure. Conclusions Normal left ventricular systolic function. Normal left ventricular cavity size. Moderate concentric left ventricular hypertrophy. Ejection fraction is visually estimated at 55 %. Tissue Doppler/Mitral Doppler indices are indeterminate in this study due to fusion of e/a waves. Max PG19 mmHg. These segments of the LV are hypokinetic mid septum segment and septum base segment consitent with previous etoh ablation procedure. Normal right ventricular size. Normal right ventricular systolic function. Pacemaker/ICD wire noted right heart. There is mild enlargement of left atrium. Normal appearance of the aortic valve. Mild sub aortic aortic stenosis. Aortic valve Max velocity 2.16 m/sec. Max PG 19 mmHg. Mean PG 11 mmHg. Trileaflet aortic valve. Normal appearance of the tricuspid valve. Right ventricular systolic pressure is consistent with mild pulmonary hypertension. Estimated peak PA systolic pressure 31 mmHg. There is mild tricuspid regurgitation. Normal size and normal respiratory collapse consistent with normal right atrial pressure. No Vegetation, masses, or thrombi seen. Electronically Signed By: Keith Guillen 22-May-2016 08:40:12 -0800 Patient Name: TAMICA NGUYEN Study Date: 21-May-2016 [id number]
--- NOTE | 2016-05-22 08:55 | CONS ---
Date/Time of Note Date/Time of Note DATE: 05/22/16 TIME: 08:53 Assessment/Plan Assessment/Plan Chief Complaint/Hosp Course Patient is a very pleasant 71-year-old white lady who was admitted on the of this month for left total knee arthroplasty which was uneventful the patient was doing fairly well on the medical floor however this morning the patient to get up and got dizzy rapid response was called and the patient was transferred to telemetry unit and without any further intervention the patient symptoms got significantly improved the patient denies any further dizziness any headache chest pain is very minimal shortness of breath. On a chronic basis the patient does complain of COPD symptoms as she has been exposed to a lot of secondhand smoke at work and at home uses long-acting bronchodilators as well as inhaled steroids for relief of chronic symptoms. Currently denies any chest pain and hemoptysis coughing sputum production abdominal pain nausea vomiting. The left knee pain is quite tolerable. Has any leg swelling. Has any headache, seizures. Problems: Additional Assessment/Plan Assessment and recommendation 1. Patient admitted for left knee arthroplasty then developed a near syncopal episode with negative CT angiogram of the chest. 2. History of hypertension. Next 3. Episode likely vasovagal response or possibly related to antihypertensive medications. There is marked overall improvement now. Continue current supportive care. Consultation Date/Type/Reason Admit Date/Time May 18, 2016 at 05:32 Initial Consult Date 05/21/16 Type of Consultation: pulmonary 24 HR Interval Summary Free Text/Dictation Patient is doing very well denies any further syncopal episodes, denies any dizziness, shortness of breath, cough ,sputum production ,wheezing ,chest pain. General examination; elderly lady awake alert currently in no distress. Exam/Review of Systems Vital Signs Vitals Vital Signs Date Time Temp Pulse Resp B/P Pulse Ox O2 Delivery O2 Flow Rate FiO2 05/22/16 08:23 76 05/22/16 08:13 18 97 Nasal Cannula 3.0 05/22/16 08:13 32 05/22/16 07:15 97.8 104/53 Intake and Output 05/21/16 05/21/16 05/22/16 15:00 23:00 07:00 Intake Total 920 ml 200 ml Balance 920 ml 200 ml Exam HEENT examination; supple neck, no JVD, no lymphadenopathy. No thyromegaly. Pharynx is clear. Supple neck. Next Chest examination; diminished but clear breath sounds with no added sounds. S1- S2 audible no murmurs regular rhythm. Abdomen examination; soft, nondistended, nontender, no organomegaly. Bowel sounds audible. Extremity examination; there is a well-healed right knee scar, and brace applied over the left knee there is no peripheral edema pulses 1+ bilaterally. 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 Results Result Diagram: 05/22/16 0515 05/22/16 0540 Results 24 hrs Laboratory Tests Test 05/22/16 05:15 05/22/16 05:40 Basophils # 0.0 Basophils % 0.3 Eosinophils # 0.2 Eosinophils % 2.6 Hematocrit 31.2 L Hemoglobin 11.0 L Lymphocytes # 1.0 Lymphocytes % 13.5 L Mean Corpuscular Hemoglobin 33.0 Mean Corpuscular Hemoglobin Concent 35.1 Mean Corpuscular Volume 93.9 Mean Platelet Volume 7.4 Monocytes # 0.9 Monocytes % 12.8 H Neutrophils # 5.0 Neutrophils % 70.8 Nucleated Red Blood Cells # 0.0 Nucleated Red Blood Cells % 0.0 Platelet Count 171 Red Blood Count 3.33 L Red Cell Distribution Width 12.8 White Blood Count 7.1 Anion Gap 12 Blood Urea Nitrogen 14 Calcium Level 8.6 Carbon Dioxide Level 27 Chloride Level 104 Creatinine 0.85 Glucose Level 100 Magnesium Level 2.1 Phosphorus Level 3.7 Potassium Level 4.1 Sodium Level 139 Medications Medications Current Medications Naloxone HCl (Narcan) 0.2 mg Q2M PRN IV RESPIRATORY RATE LESS THAN 8; Start at 07:00 Senna/Docusate Sodium (Senokot-S) 1 tab BID PO Last administered on 05/21/16 20:55; Admin Dose 1 TAB; Start 05/18/16 at 21:00 Magnesium Hydroxide (Milk Of Mag) 30 ml BID PRN PO CONSTIPATION Last administered on 05/21/16 09:09; Admin Dose 30 ML; Start 05/18/16 at 07:00 Magnesium Hydroxide (Milk Of Mag) 30 ml HS PO ; Start 05/20/16 at 21:00 Ondansetron HCl (Zofran Inj) 4 mg Q4H PRN IV NAUSEA Last administered on 20:39; Admin Dose 4 MG; Start 05/18/16 at 07:00 Aspirin (Ecotrin) 325 mg BID PO Last administered on 05/21/16 20:55; Admin Dose 325 MG; Start 05/19/16 at 09:00 Bupropion HCl (Wellbutrin Xl) 300 mg DAILY PO Last administered on 05/21/16 09 :09; Admin Dose 300 MG; Start 05/19/16 at 09:00 Escitalopram Oxalate (Lexapro) 10 mg DAILY PO Last administered on 05/21/16 09 :10; Admin Dose 10 MG; Start 05/19/16 at 09:00 Isosorbide Mononitrate (Imdur) 90 mg DAILY PO Last administered on 05/20/16 15 :58; Admin Dose 90 MG; Start 05/19/16 at 09:00; Status Future Hold Methylcellulose (Citrucel) 1 pkt DAILY PO Last administered on 05/21/16 09:00 ; Admin Dose 1 PKT; Start 05/19/16 at 09:00 Metoprolol Succinate (Toprol Xl) 25 mg DAILY PO Last administered on 05/20/16 11:56; Admin Dose 25 MG; Start 05/18/16 at 19:00; Status Future Hold Ranolazine (Ranexa) 1,000 mg Q12 PO Last administered on 05/21/16 20:54; Admin Dose 1,000 MG; Start 05/18/16 at 21:00 Saccharomyces Boulardii (Florastor) 250 mg DAILY PO Last administered on 10:12; Admin Dose 250 MG; Start 05/19/16 at 09:00 Tiotropium [place] (Spiriva) 1 inh DAILY INH Last administered on 05/21/16 10: 12; Admin Dose 1 INH; Start 05/19/16 at 09:00 Pantoprazole (Protonix Tab) 40 mg DAILY@06 PO Last administered on 05/22/16 05 :48; Admin Dose 40 MG; Start 05/19/16 at 06:00 Atorvastatin Calcium (Lipitor) 80 mg DAILY@21 PO Last administered on 20:55; Admin Dose 80 MG; Start 05/18/16 at 21:00 Topiramate (Topamax) 75 mg HS PO Last administered on 05/21/16 21:58; Admin Dose 75 MG; Start 05/19/16 at 21:00 Sucralfate (Carafate) 1 gm TID PRN PO NAUSEA; Start 05/19/16 at 11:00 Phenol (Cepastat Lozenge) 1 lozenge Q1H PRN MT sore throat Last administered on 05/20/16 20:39; Admin Dose 1 LOZENGE; Start 05/19/16 at 17:00 Guaifenesin/ Dextromethorphan (Mucinex Dm) 1 tab BID PO Last administered on 20:54; Admin Dose 1 TAB; Start 05/20/16 at 09:00 Hydromorphone HCl (Dilaudid) 1 mg Q6H PRN IV PAIN LEVEL 4-6 Last administered on 05/21/16 21:15; Admin Dose 1 MG; Start 05/21/16 at 08:00 Azithromycin (Zithromax) 250 mg DAILY PO Last administered on 05/21/16 09:10; Admin Dose 250 MG; Start 05/21/16 at 09:00; Stop 05/24/16 at 16:00 Acetaminophen (Tylenol Tab) 650 mg Q4H PRN PO PAIN AND OR ELEVATED TEMP; Start 05/22/16 at 07:30 LALO LESTER May 22, 2016 08:55
--- NOTE | 2016-05-22 09:15 | CONS ---
Date/Time of Note Date/Time of Note DATE: 05/22/16 TIME: 09:02 Assessment/Plan Assessment/Plan Chief Complaint/Hosp Course 1) AMS/Dizziness- lower bp at time, ? orthostasis vs. vagal. no syncope - can d/c tele if no recurrent evetns. - avoid further diuretic for now - holding imdur/metoprolol given lower bp in 90s. consider restart imdur in am at lower dose 30mg - ok to cont ranolazine - ICD interrogated no arrhythmia at time of symptoms. 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 Problems: Consultation Date/Type/Reason Admit Date/Time May 18, 2016 at 05:32 Initial Consult Date 05/21/16 Type of Consultation: Cardiology Referring Provider: KENTRELL MARKS MD 24 HR Interval Summary Free Text/Dictation no further events. pt denies cp/sob. no palpitations/dizziness. walking with walker. tele reviewed: NSR mostly 80s-90s. no events. ICD interrogated- no events, normal fxn. Constitutional: improved Detailed Summary Eyes: no complaints Respiratory: no complaints Cardiovascular: no complaints Gastrointestinal: no complaints Exam/Review of Systems Vital Signs Vitals Vital Signs Date Time Temp Pulse Resp B/P Pulse Ox O2 Delivery O2 Flow Rate FiO2 05/22/16 08:23 76 05/22/16 08:13 18 97 Nasal Cannula 3.0 05/22/16 08:13 32 05/22/16 07:15 97.8 104/53 Intake and Output 05/21/16 05/21/16 05/22/16 15:00 23:00 07:00 Intake Total 920 ml 200 ml Balance 920 ml 200 ml Exam Constitutional: alert, oriented Psych: no complaints Head: atraumatic, normocephalic Eyes: nl conjunctiva ENMT: nl external ears & nose, nl lips & teeth, nl nasal mucosa & septum Neck: non-tender, supple, No jvd Respiratory: clear to auscultation, normal air movement Cardiovascular: nl pulses, regular rate and rhythm, systolic murmur, No S3, No S4 Gastrointestinal: non-tender, soft Musculoskeletal: nl extremities to inspection, No nl gait and stance Extremities: normal pulses 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, nl mental status, nl speech, nl strength Results Result Diagram: 05/22/16 0515 05/22/16 0540 Results 24 hrs Laboratory Tests Test 05/22/16 05:15 05/22/16 05:40 Basophils # 0.0 Basophils % 0.3 Eosinophils # 0.2 Eosinophils % 2.6 Hematocrit 31.2 L Hemoglobin 11.0 L Lymphocytes # 1.0 Lymphocytes % 13.5 L Mean Corpuscular Hemoglobin 33.0 Mean Corpuscular Hemoglobin Concent 35.1 Mean Corpuscular Volume 93.9 Mean Platelet Volume 7.4 Monocytes # 0.9 Monocytes % 12.8 H Neutrophils # 5.0 Neutrophils % 70.8 Nucleated Red Blood Cells # 0.0 Nucleated Red Blood Cells % 0.0 Platelet Count 171 Red Blood Count 3.33 L Red Cell Distribution Width 12.8 White Blood Count 7.1 Anion Gap 12 Blood Urea Nitrogen 14 Calcium Level 8.6 Carbon Dioxide Level 27 Chloride Level 104 Creatinine 0.85 Glucose Level 100 Magnesium Level 2.1 Phosphorus Level 3.7 Potassium Level 4.1 Sodium Level 139 Medications Medications Current Medications Naloxone HCl (Narcan) 0.2 mg Q2M PRN IV RESPIRATORY RATE LESS THAN 8; Start at 07:00 Senna/Docusate Sodium (Senokot-S) 1 tab BID PO Last administered on 05/21/16 20:55; Admin Dose 1 TAB; Start 05/18/16 at 21:00 Magnesium Hydroxide (Milk Of Mag) 30 ml BID PRN PO CONSTIPATION Last administered on 05/21/16 09:09; Admin Dose 30 ML; Start 05/18/16 at 07:00 Magnesium Hydroxide (Milk Of Mag) 30 ml HS PO ; Start 05/20/16 at 21:00 Ondansetron HCl (Zofran Inj) 4 mg Q4H PRN IV NAUSEA Last administered on 20:39; Admin Dose 4 MG; Start 05/18/16 at 07:00 Aspirin (Ecotrin) 325 mg BID PO Last administered on 05/21/16 20:55; Admin Dose 325 MG; Start 05/19/16 at 09:00 Bupropion HCl (Wellbutrin Xl) 300 mg DAILY PO Last administered on 05/21/16 09 :09; Admin Dose 300 MG; Start 05/19/16 at 09:00 Escitalopram Oxalate (Lexapro) 10 mg DAILY PO Last administered on 05/21/16 09 :10; Admin Dose 10 MG; Start 05/19/16 at 09:00 Isosorbide Mononitrate (Imdur) 90 mg DAILY PO Last administered on 05/20/16 15 :58; Admin Dose 90 MG; Start 05/19/16 at 09:00; Status Future Hold Methylcellulose (Citrucel) 1 pkt DAILY PO Last administered on 05/21/16 09:00 ; Admin Dose 1 PKT; Start 05/19/16 at 09:00 Metoprolol Succinate (Toprol Xl) 25 mg DAILY PO Last administered on 05/20/16 11:56; Admin Dose 25 MG; Start 05/18/16 at 19:00; Status Future Hold Ranolazine (Ranexa) 1,000 mg Q12 PO Last administered on 05/21/16 20:54; Admin Dose 1,000 MG; Start 05/18/16 at 21:00 Saccharomyces Boulardii (Florastor) 250 mg DAILY PO Last administered on 10:12; Admin Dose 250 MG; Start 05/19/16 at 09:00 Tiotropium [place] (Spiriva) 1 inh DAILY INH Last administered on 05/21/16 10: 12; Admin Dose 1 INH; Start 05/19/16 at 09:00 Pantoprazole (Protonix Tab) 40 mg DAILY@06 PO Last administered on 05/22/16 05 :48; Admin Dose 40 MG; Start 05/19/16 at 06:00 Atorvastatin Calcium (Lipitor) 80 mg DAILY@21 PO Last administered on 20:55; Admin Dose 80 MG; Start 05/18/16 at 21:00 Topiramate (Topamax) 75 mg HS PO Last administered on 05/21/16 21:58; Admin Dose 75 MG; Start 05/19/16 at 21:00 Sucralfate (Carafate) 1 gm TID PRN PO NAUSEA; Start 05/19/16 at 11:00 Phenol (Cepastat Lozenge) 1 lozenge Q1H PRN MT sore throat Last administered on 05/20/16 20:39; Admin Dose 1 LOZENGE; Start 05/19/16 at 17:00 Guaifenesin/ Dextromethorphan (Mucinex Dm) 1 tab BID PO Last administered on 20:54; Admin Dose 1 TAB; Start 05/20/16 at 09:00 Hydromorphone HCl (Dilaudid) 1 mg Q6H PRN IV PAIN LEVEL 4-6 Last administered on 05/21/16 21:15; Admin Dose 1 MG; Start 05/21/16 at 08:00 Azithromycin (Zithromax) 250 mg DAILY PO Last administered on 05/21/16 09:10; Admin Dose 250 MG; Start 05/21/16 at 09:00; Stop 05/24/16 at 16:00 Acetaminophen (Tylenol Tab) 650 mg Q4H PRN PO PAIN AND OR ELEVATED TEMP; Start 05/22/16 at 07:[address] chest report reviewed in emr venous u/s images reviewed. no dvt MAR POSADA May 22, 2016 09:12
[2016-05-22] MEDS: METHYLCELLULOSE PACKET PO SCH (10:18)
[2016-05-22] MEDS: TIOTROPIUM 18 MCG CAPSULE INHA DEV INH SCH (10:18)
[2016-05-22] MEDS: AZITHROMYCIN 250 MG TAB PO SCH (10:19)
[2016-05-22] MEDS: ESCITALOPRAM 10 MG TAB PO SCH (10:19)
[2016-05-22] MEDS: SACCHAROMYCES BOULARDII 250 MG CAP PO SCH (10:19)
[2016-05-22] MEDS: ASPIRIN (EC) 325 MG TAB PO SCH ×2 (10:19→20:31)
[2016-05-22] MEDS: RANOLAZINE (SR) 500 MG TAB PO SCH ×2 (10:19→20:30)
[2016-05-22] MEDS: SENNA/DOCUSATE NA (8.6MG/50MG) TAB PO SCH ×2 (10:20→20:31)
[2016-05-22] MEDS: GUAIFENESIN/DM (SR) TAB PO SCH ×2 (10:20→20:30)
[2016-05-22] MEDS: BUPROPION (XL) 150 MG TAB PO SCH (10:20)
[2016-05-22] MEDS: ONDANSETRON 4 MG INJ IV PRN (10:32)
[2016-05-22] MEDS: HYDROmorphONE 1 MG/ML SYG IV PRN ×2 (10:32→20:31)
[2016-05-22] MEDS ORDERED: HYDROmorphONE 1 MG/ML SYG IV STA (15:29)
[2016-05-22] MEDS: TOPIRAMATE 25 MG TAB PO SCH (20:31)
[2016-05-22] MEDS: ATORVASTATIN 80 MG TAB PO SCH (20:31)
[2016-05-22] MEDS: MAGNESIUM HYDROXIDE 30ML CUP PO SCH (20:31)
[2016-05-23] VITALS (8 sets, daily range): BP systolic 90–110; BP diastolic 47–56; PULSE 78–95; RESP 17–19
[2016-05-23] MEDS: LEVALBUTEROL (NEB) 0.63 MG/3 ML AMP HHN SCH ×2 (01:37→08:58)
[2016-05-23] MEDS: IPRATROPIUM (NEB) 0.5 MG/2.5 ML AMP HHN SCH ×2 (01:38→08:58)
[2016-05-23] MEDS: PANTOPRAZOLE (EC) 40 MG TAB PO SCH (06:26)
[2016-05-23 07:13] LABS: POTASSIUM 4.6 mmol/L (3.5-5.1)
[2016-05-23 07:15] LABS: CREATININE 0.97 mg/dl (0.44-1.00)
[2016-05-23 07:16] LABS: CALCIUM 9.1 mg/dl (8.4-10.2)
[2016-05-23 07:22] LABS: BASOPHIL # 0.1 10^3/ul (0.0-0.1); BASOPHILS % 0.6 % (0.0-2.0); EOSINOPHILS # 0.2 10^3/ul (0.0-0.5); EOSINOPHILS % 2.8 % (0.0-7.0); HEMATOCRIT 32.8 % (37.0-47.0); HEMOGLOBIN 11.4 g/dl (12.0-16.0); LYMPHOCYTES # 0.9 10^3/ul (0.8-2.9); LYMPHOCYTES % 10.7 % (15.0-51.0); MEAN CORPUSCULAR HEMOGLOBIN 32.4 pg (29.0-33.0); MEAN CORPUSCULAR HGB CONC 34.9 g/dl (32.0-37.0); MEAN CORPUSCULAR VOLUME 92.7 fl (82.0-101.0); MEAN PLATELET VOLUME 7.8 fl (7.4-10.4); MONOCYTE # 1.2 10^3/ul (0.3-0.9); MONOCYTES % 13.4 % (0.0-11.0); NEUTROPHIL # 6.3 10^3/ul (1.6-7.5); NEUTROPHILS % 72.5 % (39.0-77.0); PLATELET COUNT 222 10^3/UL (140-440); RED BLOOD COUNT 3.53 10^6/ul (4.20-5.40); RED CELL DISTRIBUTION WIDTH 12.8 % (11.5-14.5); UNCORRECTED WBC 8.7 10^3/ul (4.8-10.8); WHITE BLOOD COUNT 8.7 10^3/ul (4.8-10.8)
[2016-05-23 07:24] LABS: CONDITION 1
[2016-05-23] MEDS: HYDROmorphONE 1 MG/ML SYG IV PRN ×2 (08:39→12:40)
[2016-05-23] MEDS: ONDANSETRON 4 MG INJ IV PRN (08:39)
[2016-05-23] MEDS: METHYLCELLULOSE PACKET PO SCH (08:40)
[2016-05-23] MEDS: ASPIRIN (EC) 325 MG TAB PO SCH (08:40)
[2016-05-23] MEDS: ESCITALOPRAM 10 MG TAB PO SCH (08:40)
[2016-05-23] MEDS: AZITHROMYCIN 250 MG TAB PO SCH (08:40)
[2016-05-23] MEDS: GUAIFENESIN/DM (SR) TAB PO SCH (08:40)
[2016-05-23] MEDS: RANOLAZINE (SR) 500 MG TAB PO SCH (08:41)
[2016-05-23] MEDS: BUPROPION (XL) 150 MG TAB PO SCH (08:41)
[2016-05-23] MEDS: SENNA/DOCUSATE NA (8.6MG/50MG) TAB PO SCH (08:41)
[2016-05-23] MEDS: SACCHAROMYCES BOULARDII 250 MG CAP PO SCH (08:41)
[2016-05-23] MEDS: TIOTROPIUM 18 MCG CAPSULE INHA DEV INH SCH (08:41)
--- NOTE | 2016-05-23 10:24 | CONS ---
Date/Time of Note Date/Time of Note DATE: 05/23/16 TIME: 10:21 Assessment/Plan Assessment/Plan Chief Complaint/Hosp Course 1) AMS/Dizziness- lower bp at time, ? orthostasis vs. vagal. 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 Problems: Consultation Date/Type/Reason Admit Date/Time May 18, 2016 at 05:32 Initial Consult Date 05/21/16 Type of Consultation: Cardiology Referring Provider: KENTRELL MARKS MD 24 HR Interval Summary Free Text/Dictation no acute events. tele reviewed shows sinus with v pacing. no cp/sob per pt. no events, dizziness/confusion. Constitutional: improved Detailed Summary Respiratory: no complaints Cardiovascular: no complaints Gastrointestinal: no complaints Exam/Review of Systems Vital Signs Vitals Vital Signs Date Time Temp Pulse Resp B/P Pulse Ox O2 Delivery O2 Flow Rate FiO2 05/23/16 09:00 92 18 93 21 05/23/16 07:52 97.7 109/54 05/23/16 03:42 2.0 05/23/16 01:38 Nasal Cannula Intake and Output 05/22/16 05/22/16 05/23/16 15:00 23:00 07:00 Intake Total 960 ml 400 ml Balance 960 ml 400 ml Exam Constitutional: alert, oriented Psych: no complaints Head: atraumatic, normocephalic Eyes: nl conjunctiva ENMT: nl external ears & nose, nl lips & teeth, nl nasal mucosa & septum Neck: non-tender, supple, No jvd Respiratory: clear to auscultation, normal air movement Cardiovascular: nl pulses, regular rate and rhythm, systolic murmur, No S3, No S4 Gastrointestinal: non-tender, soft Musculoskeletal: nl extremities to inspection, No nl gait and stance Extremities: normal pulses 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, nl mental status, nl speech, nl strength Results Result Diagram: 1/28/17 0609 05/23/16 0609 Results 24 hrs Laboratory Tests Test 05/23/16 06:09 Anion Gap 10 Basophils # 0.1 Basophils % 0.6 Blood Urea Nitrogen 14 Calcium Level 9.1 Carbon Dioxide Level 31 Chloride Level 105 Creatinine 0.97 Eosinophils # 0.2 Eosinophils % 2.8 Glucose Level 108 Hematocrit 32.8 L Hemoglobin 11.4 L Lymphocytes # 0.9 Lymphocytes % 10.7 L Mean Corpuscular Hemoglobin 32.4 Mean Corpuscular Hemoglobin Concent 34.9 Mean Corpuscular Volume 92.7 Mean Platelet Volume 7.8 Monocytes # 1.2 H Monocytes % 13.4 H Neutrophils # 6.3 Neutrophils % 72.5 Nucleated Red Blood Cells # 0.0 Nucleated Red Blood Cells % 0.0 Platelet Count 222 # Potassium Level 4.6 Red Blood Count 3.53 L Red Cell Distribution Width 12.8 Sodium Level 141 White Blood Count 8.7 # Medications Medications Current Medications Naloxone HCl (Narcan) 0.2 mg Q2M PRN IV RESPIRATORY RATE LESS THAN 8; Start at 07:00 Senna/Docusate Sodium (Senokot-S) 1 tab BID PO Last administered on 05/23/16 08:41; Admin Dose 1 TAB; Start 05/18/16 at 21:00 Magnesium Hydroxide (Milk Of Mag) 30 ml BID PRN PO CONSTIPATION Last administered on 05/21/16 09:09; Admin Dose 30 ML; Start 05/18/16 at 07:00 Magnesium Hydroxide (Milk Of Mag) 30 ml HS PO Last administered on 05/22/16 20 :31; Admin Dose 30 ML; Start 05/20/16 at 21:00 Ondansetron HCl (Zofran Inj) 4 mg Q4H PRN IV NAUSEA Last administered on 08:39; Admin Dose 4 MG; Start 05/18/16 at 07:00 Aspirin (Ecotrin) 325 mg BID PO Last administered on 05/23/16 08:40; Admin Dose 325 MG; Start 05/19/16 at 09:00 Bupropion HCl (Wellbutrin Xl) 300 mg DAILY PO Last administered on 05/23/16 08 :41; Admin Dose 300 MG; Start 05/19/16 at 09:00 Escitalopram Oxalate (Lexapro) 10 mg DAILY PO Last administered on 05/23/16 08 :40; Admin Dose 10 MG; Start 05/19/16 at 09:00 Isosorbide Mononitrate (Imdur) 90 mg DAILY PO Last administered on 05/20/16 15 :58; Admin Dose 90 MG; Start 05/19/16 at 09:00; Status Future Hold Methylcellulose (Citrucel) 1 pkt DAILY PO Last administered on 05/23/16 08:40 ; Admin Dose 1 PKT; Start 05/19/16 at 09:00 Metoprolol Succinate (Toprol Xl) 25 mg DAILY PO Last administered on 05/20/16 11:56; Admin Dose 25 MG; Start 05/18/16 at 19:00; Status Future Hold Ranolazine (Ranexa) 1,000 mg Q12 PO Last administered on 05/23/16 08:41; Admin Dose 1,000 MG; Start 05/18/16 at 21:00 Saccharomyces Boulardii (Florastor) 250 mg DAILY PO Last administered on 08:41; Admin Dose 250 MG; Start 05/19/16 at 09:00 Tiotropium [place] (Spiriva) 1 inh DAILY INH Last administered on 05/23/16 08: 41; Admin Dose 1 INH; Start 05/19/16 at 09:00 Pantoprazole (Protonix Tab) 40 mg DAILY@06 PO Last administered on 05/23/16 06 :26; Admin Dose 40 MG; Start 05/19/16 at 06:00 Atorvastatin Calcium (Lipitor) 80 mg DAILY@21 PO Last administered on 20:31; Admin Dose 80 MG; Start 05/18/16 at 21:00 Topiramate (Topamax) 75 mg HS PO Last administered on 05/22/16 20:31; Admin Dose 75 MG; Start 05/19/16 at 21:00 Sucralfate (Carafate) 1 gm TID PRN PO NAUSEA; Start 05/19/16 at 11:00 Phenol (Cepastat Lozenge) 1 lozenge Q1H PRN MT sore throat Last administered on 05/20/16 20:39; Admin Dose 1 LOZENGE; Start 05/19/16 at 17:00 Guaifenesin/ Dextromethorphan (Mucinex Dm) 1 tab BID PO Last administered on 08:40; Admin Dose 1 TAB; Start 05/20/16 at 09:00 Hydromorphone HCl (Dilaudid) 1 mg Q6H PRN IV PAIN LEVEL 4-6 Last administered on 05/23/16 08:39; Admin Dose 1 MG; Start 05/21/16 at 08:00 Azithromycin (Zithromax) 250 mg DAILY PO Last administered on 05/23/16 08:40; Admin Dose 250 MG; Start 05/21/16 at 09:00; Stop 05/24/16 at 16:00 Acetaminophen (Tylenol Tab) 650 mg Q4H PRN PO PAIN AND OR ELEVATED TEMP; Start 05/22/16 at 07:30 MAR POSADA May 23, 2016 10:24
[2016-05-23] MEDS ORDERED: ISOSORBIDE MONONITRATE(SR)30 MG TAB PO SCH (10:30)
[2016-05-23] MEDS ORDERED: AZIT250T6 PO (11:05)
[2016-05-23] MEDS ORDERED: ISOS30TA5 PO (11:34)
[2016-05-23] MEDS ORDERED: SENN-88 PO (11:39)
[2016-05-23] MEDS ORDERED: ASPI325T32 PO (11:39)
--- NOTE | 2016-05-23 11:41 | PDOCDIS ---
Discharge Instructions DIAGNOSIS Discharge Diagnosis: knee replacement CONDITION Patient Condition: Stable HOME CARE INSTRUCTIONS: Diet Instructions: Low Fat /CholesterolSpecial Diet: regular ACTIVITY: Activity Restrictions: Slowly Increase Activity Rest between Activity Avoid heavy lifting Do not operate Machinery Do not operate Power Tool Avoid Heavy Housework Bathing Restrictions: ShowerActivity Restrictions Comment: waterproof dressing to knee please during showers REFERRALS Agency Name and Phone Number: [facility] [phone] TOMMY HICKS MD May 23, 2016 11:41
--- NOTE | 2016-05-23 11:46 | DS ---
Date/Time of Note Date/Time of Note DATE: 05/23/16 TIME: 11:43 Discharge Summary Admission/Discharge Info Admit Date/Time May 18, 2016 at 05:32 Discharge Date/Time 05/23/16 Final Diagnosis Left Knee Replacement Patient Condition: Stable Hospital Course 1. L knee OA - s/p L knee replacement by Dr. Leon. - stable post op course - home health - ASA BID x 30 days - pain control, bowel regimen 2. AMS/Dizziness- likely vagal, no syncope - restart imdur in am at lower dose 30mg - ok to cont ranolazine 3. HOCM/subaortic stenosis - avoid dehydration as could cause dizziness - echo without acute abnl 4. Micro vascular cad- h/o chest pain, no current pain - cont ranolazine - restart low dose imdur - resume MTP XL tomorrow 5. s/p icd- no shocks/events. Home Meds Active Scripts Sennosides/Docusate Sodium (Senna Plus Tablet) 1 Each Tablet, 1 TAB PO BID for 30 Days, #60 TAB Prov:TOMMY HICKS MD 05/23/16 Aspirin (Aspir-Meena) 325 Mg Tablet.dr, 325 MG PO BID for 30 Days, #60 Prov:TOMMY HICKS MD 05/23/16 Isosorbide Mononitrate* (Isosorbide Mononitrate*) 30 Mg Tab.er.24h, 30 MG PO DAILY for 30 Days, #30 Prov:TOMMY HICKS MD 05/23/16 Azithromycin* (Azithromycin*) 250 Mg Tablet, 250 MG PO DAILY for 4 Days, #4 TAB Prov:TOMMY HICKS MD 05/23/16 Reported Medications B2/Mag Cit & Ox/Feverfew (MIGRELIEF CAPLET) 1 Each Tablet, 3 EACH PO, TAB 05/18/16 Methylcellulose* (Citrucel*) 454 Gm Susp, 2 TAB PO DAILY, PKT 05/18/16 Cyanocobalamin* (Vitamin B-12*) 1,000 Mcg Tablet.sa, [address]5052 MCG PO DAILY, TAB 05/18/16 Cholecalciferol* (Vitamin D*) 400 Unit Tablet, 2000 UNIT PO DAILY, TAB 05/18/16 Ascorbic Acid (Vitamin C) 500 Mg Tab, 500 MG PO DAILY, TAB 05/18/16 Vitamin E Mixed* (Vitamin E*) 200 Unit Tablet, 200 UNIT PO DAILY, TAB 05/18/16 Potassium Gluconate (POTASSIUM) 99 Mg Tablet, 99 MG PO DAILY, TAB 05/18/16 Selenomethionine* (Selenium*) 200 Mcg Tablet, 100 MCG PO DAILY, TAB 05/18/16 Calcium Carbonate (CALCIUM) 600 Mg Tablet, 750 MG PO DAILY, TAB 05/18/16 Vit A,C & E/Lutein/Minerals (Ocuvite) 1 Each Tablet, 1 TAB PO DAILY, TAB 05/18/16 Meclizine Hcl* (Meclizine Hcl*) 25 Mg Tablet, 25 MG PO Q8H Y for DIZZINESS, TAB 05/18/16 Hydromorphone Hcl* (Dilaudid*) 2 Mg Tablet, 2 MG PO Q4H Y for PAIN, TAB 05/18/16 Levalbuterol Hcl* (Levalbuterol Hcl*) 0.63 Mg/3 Ml Vial.neb, INHALATION Q6H Y for WHEEZING AND SOB, VIAL 05/18/16 Sucralfate* (Carafate*) 1 Gm Tab, 1 GM PO DAILY Y for antacid, TAB 05/18/16 Benzonatate* (Tessalon Perle*) 100 Mg Capsule, 100 MG PO Q8H Y for COUGH, CAP 05/18/16 Ondansetron Hcl* (Ondansetron Hcl*) 4 Mg Tablet, 4 MG PO Q4H Y for NAUSEA AND OR VOMITING, TAB 05/18/16 Eletriptan Hydrobromide (Relpax) 20 Mg Tablet, 40 MG PO Y for HEADACHE, TAB 05/18/16 Tiotropium [place]* (Spiriva*) 18 Mcg Cap.w.dev, 1 CAP INHALATION DAILY, #30 CAP 05/18/16 Omeprazole* (Omeprazole*) 40 Mg Capsule.dr, 40 MG PO DAILY, #30 CAP 05/18/16 Saccharomyces Boulardii* (Florastor*) 250 Mg Cap, 250 MG PO DAILY, CAP 05/18/16 Rosuvastatin Calcium* (Crestor*) 10 Mg Tablet, 10 MG PO QHS, #30 TAB 05/18/16 Metoprolol Succinate* (Toprol XL*) 25 Mg Tab.sr.24h, 25 MG PO DAILY, #30 TAB 05/18/16 Sodium Fluoride (Prevident 5000) 100 Ml Gel..ml., DT BID 05/18/16 Ranolazine* (Ranexa*) 1,000 Mg Tab.sr.12h, 1000 MG PO Q12, TAB 05/18/16 Escitalopram Oxalate* (Lexapro*) 10 Mg Tablet, 10 MG PO DAILY, #30 TAB 05/18/16 Bupropion Hcl* (Wellbutrin XL*) 300 Mg Tab.sr.24h, 300 MG PO DAILY, TAB.SA 05/18/16 Topiramate* (Topamax*) 25 Mg Tablet, 75 MG PO DAILY, TAB 05/18/16 Discontinued Reported Medications Isosorbide Mononitrate* (Isosorbide Mononitrate*) 30 Mg Tab.er.24h, 90 MG PO DAILY, TAB.SA 05/18/16 Aspirin* (Aspirin* Chew) 81 Mg Tab.chew, 81 MG PO BID, TAB.CHEW 05/18/16 Escitalopram Oxalate* (Lexapro*) 10 Mg Tablet, 10 MG PO DAILY, TAB 03/19/14 Bupropion Hcl* (Wellbutrin XL*) 300 Mg Tab.sr.24h, 300 MG PO DAILY, TAB.SA 03/19/14 Ranolazine* (Ranexa*) 1,000 Mg Tab.sr.12h, 1000 MG PO Q12, TAB 03/19/14 Rosuvastatin Calcium* (Crestor*) 10 Mg Tablet, 10 MG PO HS, TAB 03/19/14 Budesonide-Formoterol Fumarate* (Symbicort*) 80-4.5 Inha, 2 PUFF INH BID, INH 03/19/14 [Nasacort] No Conflict Check, 2 PUFFS NASAL 03/19/14 Follow-up Plan F/u Orthopedic Surgery in 1-2 weeks. Pending Labs Laboratory Tests Test 05/23/16 06:09 Anion Gap 10 (8-16) Basophils # 0.110^3/ul (0.0-0.1) Basophils % 0.6% (0.0-2.0) Blood Urea Nitrogen 14mg/dl (7-20) Calcium Level 9.1mg/dl (8.4-10.2) Carbon Dioxide Level 31mmol/L (21-31) Chloride Level 105mmol/L (97-110) Creatinine 0.97mg/dl (0.44-1.00) Eosinophils # 0.210^3/ul (0.0-0.5) Eosinophils % 2.8% (0.0-7.0) Glucose Level 108mg/dl (70-220) Hematocrit 32.8% (37.0-47.0) Hemoglobin 11.4g/dl (12.0-16.0) Lymphocytes # 0.910^3/ul (0.8-2.9) Lymphocytes % 10.7% (15.0-51.0) Mean Corpuscular Hemoglobin 32.4pg (29.0-33.0) Mean Corpuscular Hemoglobin Concent 34.9g/dl (32.0-37.0) Mean Corpuscular Volume 92.7fl (82.0-101.0) Mean Platelet Volume 7.8fl (7.4-10.4) Monocytes # 1.210^3/ul (0.3-0.9) Monocytes % 13.4% (0.0-11.0) Neutrophils # 6.310^3/ul (1.6-7.5) Neutrophils % 72.5% (39.0-77.0) Nucleated Red Blood Cells # 0.010^3/ul (0.0-0.0) Nucleated Red Blood Cells % 0.0/100WBC (0.0-0.0) Platelet Count 63524^3/UL (140-440) Potassium Level 4.6mmol/L (3.5-5.1) Red Blood Count 3.5310^6/ul (4.20-5.40) Red Cell Distribution Width 12.8% (11.5-14.5) Sodium Level 141mmol/L (135-144) White Blood Count 8.710^3/ul (4.8-10.8) TOMMY HICKS MD May 23, 2016 11:46
[2016-05-23] MEDS ORDERED: HYDROmorphONE 1 MG/ML SYG IV STA (12:34)
--- NOTE | 2016-05-24 14:00 | RADRPT ---
Vent Rate: 101 bpm RR Interval: 0 msec PA Interval: 184 msec QRS Duration: 142 msec QT Interval: 376 msec QTC Interval: 487 msec P-R-T [place]: 61 - -69 - 59 degrees Electronic ventricular pacemaker Electronically Signed By: [place] Glaser [id number]
== END 2016-05-23 13:10 | disposition home health service (06) | DRG 470 ==
LOC: REC 05:32 → MS1 11:02 → TEL 05-21 08:18
PROVIDERS: ADMIT Orthopaedic Surgery; ATTEND Orthopaedic Surgery
PROC: 0SRD0J9 Replacement of Left Knee Joint with Synthetic Substitute, Cemented, Open Approach (ICD-10-PCS; principal; 2016-05-18 07:00)
DX: M17.12 Unilateral primary osteoarthritis, left knee (principal); D80.6 Antibody deficiency with near-normal immunoglobulins or with hyperimmunoglobulinemia; I42.2 Other hypertrophic cardiomyopathy; E87.70 Fluid overload, unspecified; Z95.0 Presence of cardiac pacemaker; F32.9 Major depressive disorder, single episode, unspecified; J45.909 Unspecified asthma, uncomplicated; R00.0 Tachycardia, unspecified; R41.82 Altered mental status, unspecified; R42 Dizziness and giddiness; I95.1 Orthostatic hypotension; I10 Essential (primary) hypertension
CPT/HCPCS: 36600; 71010; 71275; 73560; 73590; 80048; 81001; 81003; 82550; 82553; 82803; 82962; 83735; 84100; 84443; 84484; 85025; 86850; 86900; 86901; 87086; 88304; 88311; 93005; 93306; 93970; 94640; 94664; 97110; 97116; 97164; 97530; J1940; C1776; J0171; J0690; J0735; J1100; J1170; J1885; J2250; J2405; J2710; J2795; J3010; J3370; J3480; J7120; Q9967